=== PATIENT | female | born 1950 | race Caucasian/White ===

== ENCOUNTER 2019-05-01 18:49 | Inpatient (IN) | payer OTHER, MEDICAID ==
[~2019-05-01] VITALS: Ht 167.6 cm; Wt 63.0 kg
[2019-05-01 18:56] VITALS: BP_SYST 130
--- NOTE | 2019-05-01 19:01 | NUR ---
Patient to ER bed 8 to gown for evaluation. Side rails up.
[2019-05-01] MEDS ORDERED: NACL 0.9% 1,000 ML IV ONE ×2 (19:10→20:00)
--- NOTE | 2019-05-01 19:10 | NUR ---
ER at bedside examining patient.
--- NOTE | 2019-05-01 19:10 | NUR ---
Pt arrives from [facility] under the care of Dr. Freitas.
[2019-05-01] MEDS ORDERED: FAMOTIDINE PF 20 MG/2 ML VIAL IVP ONE (19:15)
[2019-05-01] MEDS ORDERED: ONDANSETRON HCL 4 MG/2 ML VIAL IVP ONE (19:15)
[2019-05-01] MEDS ORDERED: MORPHINE 4 MG/ML INJ. SYRINGE IVP ONE (19:15)
--- NOTE | 2019-05-01 19:20 | NUR ---
patient arrived from subacute with c/o bloody vomit x 3 days. patient states she has pain in her abd aswell that started today. patient states "pain gets better when i press on my stomach." patient is not actively vomiting at this time. patients oral cavity is pink and does not have any blood at this time. patient has normal active bowlsounds and denies dark or liquid stool. no other compalint at this time.
--- NOTE | 2019-05-01 20:00 | NUR ---
# 24 gauge angiocath placed to R hand. Use of asceptic technique. Opsite placed over site. Blood return noted. Blood for lab drawn from site. Flushed with 10 cc of normal saline. No evidence of infiltration noted. Patient tolerated well.
[2019-05-01 20:06] LABS: BASOPHILS % (AUTO) 0.8 % (0.0-2.0); EOSINOPHILS # (AUTO) 0.1 K/uL (0.0-0.4); EOSINOPHILS % (AUTO) 2.8 % (0.0-4.0); LYMPHOCYTES # (AUTO) 2.1 K/uL (1.0-5.5); LYMPHOCYTES % (AUTO) 44.3 % (20.5-51.5); MEAN CORPUSCULAR HEMOGLOBIN 28 pg (27-31); MEAN CORPUSCULAR HGB CONC 33 % (32-36); MEAN CORPUSCULAR VOLUME 85 fL (79.0-98.0); MONOCYTES # (AUTO) 0.4 K/uL (0.0-1.0); MONOCYTES % (AUTO) 7.3 % (1.7-9.3); NEUTROPHILS # (AUTO) 2.2 K/uL (1.8-7.7); NEUTROPHILS % (AUTO) 44.8 % (40.0-70.0); PLATELET COUNT (AUTO) 196 K/uL (130-430); RED BLOOD CELL COUNT(AUTO) 4.71 MIL/uL (4.2-6.2); RED CELL DISTRIBUTION WIDTH 15.1 % (9.0-15.0); WHITE BLOOD COUNT (AUTO) 4.8 K/uL (4.8-10.8)
[2019-05-01 20:34] LABS: CREATININE 0.58 mg/dL (0.55-1.30); POTASSIUM 3.2 mmol/L (3.5-5.1)
[2019-05-01 20:40] LABS: ALBUMIN 3.5 g/dL (3.4-4.8); TOTAL BILIRUBIN 0.3 mg/dL (0.0-1.0)
[2019-05-01 20:44] LABS: BILIRUBIN,URINE NEGATIVE (NEGATIVE); BLOOD, URINE NEGATIVE (NEGATIVE); CLARITY/URINE SL HAZY (CLEAR); COLOR,URINE YELLOW (YELLOW); GLUCOSE,URINE NEGATIVE (NEGATIVE); KETONES,URINE TRACE (NEGATIVE); LEUKOCYTE ESTERASE ,URINE TRACE (NEGATIVE); NITRITE, URINE NEGATIVE (NEGATIVE); PH,URINE 6.5 (5.0-8.0); PROTEIN URINE NEGATIVE (NEGATIVE); UROBILINOGEN,URINE 0.2 (0.2-1.0)
[2019-05-01 21:16] LABS: RBC,URINE 0-3 /HPF (0-3)
[2019-05-01 21:17] LABS: BACTERIA,URINE FEW /HPF (None Seen)
[2019-05-01 21:18] LABS: MUCUS,URINE 2+ /LPF (None Seen); URINE AMORPHOUS URATE 1+ /HPF (None Seen)
[2019-05-01] MEDS ORDERED: POTASSIUM CHLORIDE 20 MEQ TAB.PRT.SR PO ONE (21:30)
[2019-05-01] MEDS ORDERED: LEVOFLOXACIN 500 MG/D5W 100 ML IV ONE (21:30)
[2019-05-01] MEDS ORDERED: PREG200C PO (22:28)
[2019-05-01] MEDS ORDERED: ASCO500C18 (22:28)
[2019-05-01] MEDS ORDERED: QUET100T33 PO (22:28)
[2019-05-01] MEDS ORDERED: MAGN400C PO (22:28)
[2019-05-01] MEDS ORDERED: FOLI-43 PO (22:28)
[2019-05-01] MEDS ORDERED: DULO40CA PO (22:28)
[2019-05-01] MEDS ORDERED: IBUP-1505 (22:28)
[2019-05-01] MEDS ORDERED: CAT.1 PO (22:28)
[2019-05-01] MEDS ORDERED: ONDA4TAB11 PO (22:28)
[2019-05-01] MEDS ORDERED: [UNRECOGNIZED DRUG - CODE] (22:28)
[2019-05-01] MEDS ORDERED: ACET-2766 PO (22:28)
[2019-05-01] MEDS ORDERED: LEVO75CA2 PO (22:28)
[2019-05-01] MEDS ORDERED: HYDR50TA61 (22:28)
[2019-05-01] MEDS ORDERED: AMLO2.5T2 PO (22:28)
[2019-05-01] MEDS ORDERED: ZIN220 PO (22:28)
[2019-05-01] MEDS ORDERED: LACT1CAP61 PO (22:28)
[2019-05-01] MEDS ORDERED: ALBU8.5H8 (22:28)
[2019-05-01] MEDS ORDERED: MULT1CAP34 PO (22:28)
[2019-05-01] MEDS ORDERED: METH500T6 PO (22:28)
[2019-05-01] MEDS ORDERED: MORP-92 PO (22:28)
[2019-05-01] MEDS ORDERED: MORPHINE 4 MG/ML INJ. SYRINGE IVP PRN (22:30)
[2019-05-01] MEDS ORDERED: MORPHINE 2 MG/ML INJ. SYRINGE IVP PRN (22:30)
--- NOTE | 2019-05-01 22:40 | NUR ---
Medication reconciliation completed with information provided by SNF. Any prior medication reconciliation on file was reviewed and corrected.
--- NOTE | 2019-05-01 22:45 | NUR ---
Patient will be admitted to care of MD Muñoz. Admitted to Med/Surg unit. Will go to room 104-A. Belongings list completed. Summary report printed. Report will be given at bedside.
--- NOTE | 2019-05-01 23:19 | NUR ---
ADMIT NOTE Received pt from ER to the floor with a diagnosis of cholelithiasis. Admission process initiated. patient oriented to pain management, safety and call light-teach back done.
[2019-05-01 23:20] VITALS: BP_SYST 125
[2019-05-01] MEDS: MORPHINE 2 MG/ML INJ. SYRINGE IVP PRN (23:58)
--- NOTE | 2019-05-01 23:58 | NUR ---
PAIN/MORPHINE PT REPORTING SEVERE ABDOMINAL PAIN. MORPHINE 2 MG IVP ADMINISTERED. MEDICATION ACTION AND POTENTIAL SIDE EFFECTS EXPLAINED. PT VERBALIZED UNDERSTANDING. PT TOLERATED WELL. NO S/S OF ACUTE DISTRESS. SAFETY PRECAUTIONS ARE IN PLACE: BED IS LOCKED IN LOWEST POSITION, SIDE RAILS UP X2, CALL LIGHT IS WITH PT, BED ALARM IS ON, CLOSE TO NURSES STATION. WILL CONT TO MONITOR.
[2019-05-02] VITALS: BP_SYST 129
[2019-05-02] MEDS: D5/0.45 NS 1,000 ML IV SCH ×2 (00:16→11:12)
--- NOTE | 2019-05-02 01:25 | NUR ---
Consultation Paged Reason for Consultation: GI Was consult called: Y Person who was notified: Fauzia Consulting Physician: Dr. Riley (Dr. Leigh is convertible sofa bedspring tester) Medical Scribe Ordering Physician: Dr. Freitas
--- NOTE | 2019-05-02 01:40 | NUR ---
Consultation Paged Reason for Consultation: ID Was consult called: Y Person who was notified: Fauzia Consulting Physician: Arnaldo Ariza Purchasing Specialist Ordering Physician: Dr. Freitas Addendum: 05/02/19 at 3703 by Georgina Aguilar MT/ Face Sheet was faxed to [phone]
--- NOTE | 2019-05-02 02:15 | NUR ---
SLEEPING PT RESTING IN BED, NO S/S OF ACUTE DISTRESS, BREATHING IS EVEN AND UNLABORED TO ROOM AIR. SAFETY AND FALL PRECAUTIONS MAINTAINED. WILL MONITOR.
--- NOTE | 2019-05-02 04:02 | NUR ---
RESTING PT RESTING IN BED WITH EYES CLOSED. NO S/S OF DISTRESS. IVF INFUSING ORDERED. BREATHING IS UNLABORED TO ROOM AIR. SAFETY PRECAUTIONS MAINTAINED. WILL MONITOR.
--- NOTE | 2019-05-02 06:57 | NUR ---
Nutrition Update Babak Scale 16 noted. Pt admitted for Cholelithiasis Diet: no diet order BMI: 22.4 kg/m2 RD to follow per nutrition care standards.
--- NOTE | 2019-05-02 07:07 | NUR ---
CLOSING NOTE PT RESTING IN BED IN NO ACUTE DISTRESS. BREATHING IS EVEN AND EFFORTLESS TO ROOM AIR. NO SIGN OF PAIN AT THIS TIME. IVF INFUSING ORDERED. ACCORDING TO RADIOLOGY, HIDA SCAN WILL OCCUR AT APPROXIMATELY [phone] TODAY. PT HAS BEEN NPO. WILL ENDORSE FOR DAY SHIFT TO TAKE SKIN PICTURES. SAFETY MAINTAINED. WILL ENDORSE TO DAY SHIFT RN.
[2019-05-02 07:59] LABS: ALBUMIN 2.9 g/dL (3.4-4.8); CALCIUM 8.3 mg/dL (8.4-11.0); CREATININE 0.53 mg/dL (0.55-1.30); POTASSIUM 3.5 mmol/L (3.5-5.1); TOTAL BILIRUBIN 0.2 mg/dL (0.0-1.0)
--- NOTE | 2019-05-02 08:00 | NUR ---
ASSUMPTION OF CARE: RECEIVED PT A/A/OX4, ACUTE PAIN, R/T CHOLECYSTITIS, VSS, NO C/O PAIN AT THIS TIME, AFEBRILE, NO S/S OF DISTRESS, ABD PALPABLE, NON-DISTENDED, MADE NPO FOR POSSIBLE PROCEDURE, AWAITING NUCLEAR MED FOR SCHEDULED SMALL BOWEL SERIES, KEPT NPO, TOLERATING WELL, WILL CONT' TO MONITOR AND ASSESS.
[2019-05-02 08:07] VITALS: BP_SYST 139
[2019-05-02 12:00] VITALS: BP_SYST 147
--- NOTE | 2019-05-02 12:00 | NUR ---
NURSES NOTES: PT RESTING IN BED IN POSITION OF COMFORT, WHILE SLEEPING , EASILY AROUSED VIA VERBAL STIMULI, NO DISTRESS NOTED, CALL LIGHT WITHIN REACH, WILL CONT' TO MONITOR AND ASSESS.
--- NOTE | 2019-05-02 14:27 | NUR ---
Dietitian Recommendations * Recommend advancing diet when medically appropriate. Please see Nutritional Assessment for details. MARIVEL CAMILO
[2019-05-02 16:00] VITALS: BP_SYST 154
--- NOTE | 2019-05-02 16:00 | NUR ---
NURSES NOTES: PT REMAINS STABLE, NO S/S OF DISTRESS, NEEDS MET, CALL LIGHT PLACED WITHIN REACH, WILL CONT' TO MONITOR AND ASSESS.
[2019-05-02] MEDS ORDERED: MORPHINE 2 MG/ML INJ. SYRINGE IVP PRN ×2 (16:15)
[2019-05-02] MEDS: MORPHINE 2 MG/ML INJ. SYRINGE IVP PRN (16:33)
--- NOTE | 2019-05-02 18:00 | NUR ---
END OF SHIFT: PT REMAINS STABLE, NEEDS MET, WILL CONT' TO MONITOR, WILL ENDORSE TO DEMONSTRATOR SEWING TECHNIQUES NURSE.
[2019-05-02] MEDS: LORazepam 2 MG/ML VIAL IVP PRN (18:28)
[2019-05-03 00:25] VITALS: BP_SYST 148
[2019-05-03] MEDS: D5/0.45 NS 1,000 ML IV SCH ×2 (02:10→15:30)
--- NOTE | 2019-05-03 02:49 | NUR ---
Assumed pt care from Registry nurse Stinson.
--- NOTE | 2019-05-03 04:45 | NUR ---
Rounds Pt awake, no s/s distress noted. Pt refused IVF at this time. Educated pt on risks/benefit. Call light within reach. Bed low, locked, siderails up, alarm on. To monitor.
--- NOTE | 2019-05-03 07:00 | NUR ---
Closing notes Pt asleep, no s/s distress noted. IV saline lock R.hand 22 clear and patent. Call light/items within reach. Bed low, locked, siderails up, bed alarm on. To endorse to AM nurse.
[2019-05-03] MEDS: MORPHINE 2 MG/ML INJ. SYRINGE IVP PRN ×4 (07:45→20:42)
[2019-05-03 07:56] VITALS: BP_SYST 153
--- NOTE | 2019-05-03 08:00 | NUR ---
ASSUMPTION OF CARE: RECEIVED PT A/A/OX4, ACUTE PAIN, R/T CHOLECYSTITIS, VSS, NO C/O PAIN AT THIS TIME, AFEBRILE, NO S/S OF DISTRESS, TOLERATING WELL, ORIENTED TO UNIT, CALL LIGHT PLACED WITHIN REACH,WILL CONT' TO MONITOR AND ASSESS.
[2019-05-03] MEDS: LORazepam 2 MG/ML VIAL IVP PRN ×2 (08:35→14:59)
--- NOTE | 2019-05-03 09:00 | NUR ---
VISIT: AT BEDSIDE FOR ASSESSMENT OF PT, DISCUSSED POC, PT VERBALIZES UNDERSTANDING, NEW ORDERS GIVEN, WILL CONT' TO MONITOR AND ASSESS.
[2019-05-03 11:36] VITALS: BP_SYST 130
[2019-05-03] MEDS ORDERED: CIPROFLOXACIN HCL 500 MG TABLET PO ONE (12:00)
[2019-05-03 15:32] VITALS: BP_SYST 144
--- NOTE | 2019-05-03 16:00 | NUR ---
NURSES NOTES: PT OBSERVED WHILE RESTING IN BED, NO S/S OF DISTRESS, NO INDICATION OF PAIN, CALL LIGHT WITHIN REACH, WILL CONT' TO MONITOR AND ASSESS.
--- NOTE | 2019-05-03 18:00 | NUR ---
END OF SHIFT: PT REMAINS STABLE, NEEDS MET, WILL CONT' TO MONITOR, WILL ENDORSE TO MANAGER MEDICAL AFFAIRS NURSE.
[2019-05-03 20:20] VITALS: BP_SYST 112
--- NOTE | 2019-05-03 20:20 | NUR ---
Opening notes Pt asleep, easily arousable, VSS, afebrile. No s/s distress noted. IV saline lock R. hand 22G clear and patent. Pt refused IVF explained to pt POC and risk/benefits. Pt to be NPO after midnight. Call light/items within reach. Pt's cigarettes at station for safe keeping and pt aware of no smoking inside pts room. Will continue to monitor.
--- NOTE | 2019-05-03 20:42 | NUR ---
Pain med Pt c/o pain 02/12 lower back, medicated with Morphine 2mg IVP. Call light within reach. Safety measures in place. To monitor.
[2019-05-03] MEDS: CIPROFLOXACIN HCL 500 MG TABLET PO SCH (21:16)
--- NOTE | 2019-05-04 00:25 | NUR ---
Rounds Pt asleep, easily arousable. VSS. No s/s distress noted. Call light within reach. To monitor.
[2019-05-04 01:10] VITALS: BP_SYST 127
--- NOTE | 2019-05-04 01:55 | NUR ---
Rounds Pt asleep, no s/s distress noted. Pt repositions herself in bed. Call light within reach. Safety measures maintained. To monitor.
[2019-05-04] MEDS: D5/0.45 NS 1,000 ML IV SCH (04:50)
[2019-05-04] MEDS: MORPHINE 2 MG/ML INJ. SYRINGE IVP PRN (05:41)
--- NOTE | 2019-05-04 06:05 | NUR ---
IV restart IV leaking on R. hand. Dc'd IV catheter tip intact. Restarted new IV left wrist 22G aseptic technique x 1 attempt, good blood return. Pt tolerated well. Ativan 1mg IVP given as needed. To monitor.
[2019-05-04] MEDS: LORazepam 2 MG/ML VIAL IVP PRN ×2 (06:09→13:54)
--- NOTE | 2019-05-04 07:00 | NUR ---
Off the unit Pt off to GI for procedure via wheelchair. Pt in stable condition.
[2019-05-04] MEDS: fentaNYL CITRATE/PF 100 MCG/2 ML AMP ONE ×4 (07:21→09:09)
[2019-05-04] MEDS: MIDAZOLAM HCL 5 MG/5 ML VIAL ONE ×5 (07:21→09:11)
[2019-05-04] MEDS ORDERED: BENZOCAINE 20% 0.5mL UD SPRAY MM ONE (07:22)
[2019-05-04] MEDS ORDERED: SIMETHICONE 40 MG/0.6 ML ML ONE (07:25)
[2019-05-04 10:00] VITALS: BP_SYST 153
[2019-05-04] MEDS ORDERED: MIDAZOLAM HCL 5 MG/ML VIAL (VERSED) IV ONE (10:00)
[2019-05-04] MEDS ORDERED: fentaNYL CITRATE/PF 100 MCG/2 ML AMP IVP ONE (10:00)
[2019-05-04] MEDS ORDERED: DIPHENHYDRAMINE INJ 50 MG/ML VIAL IV ONE (10:00)
--- NOTE | 2019-05-04 10:00 | NUR ---
ON UNIT PATIENT RETURNED FROM ENTEROSCOPY. REPORT RECEIVED FROM CELIA; NO FINDINGS WITH 3 BIOPSY TAKEN. PATIENT AWAKE. ALERT AND ORIENTED. PATIENT ABLE TO TRANSFER FROM [facility] TO BED WITH 2 PERSON ASSIST. DENIES PAIN. ROOM AIR. NO ACUTE DISTRESS. NO SOB. RESPIRATION EVEN AND UNLABORED. SKIN WARM AND DRY TO TOUCH. IV INTACT AND PATENT. RIGHT BKA NOTED. BED IN LOW AND LOCKED POSITION. SIDERAIL UP X3. CALL LIGHT IN REACH. CONT TO MONITOR. ROOM NEAR NURSES STATION.
[2019-05-04] MEDS: CIPROFLOXACIN HCL 500 MG TABLET PO SCH (10:30)
[2019-05-04 12:32] VITALS: BP_SYST 142
--- NOTE | 2019-05-04 12:45 | NUR ---
NOTE PATIENT HAD A SMALL BM. INCONTINENCE CARE PROVIDED, GIOVANA WELL. ALL NEEDS MET. CONT TO MONITOR.
--- NOTE | 2019-05-04 14:41 | NUR ---
SPOKE TO AND INFORMED MD EGD FINDING WAS ESOPHAGITIS. RECEIVED ORDER TO D/C BACK TO SNF
--- NOTE | 2019-05-04 16:00 | NUR ---
NOTE ASSISTED PATIENT TO COMMODE, GIOVANA WELL. ALL NEEDS MET. CONT TO MONITOR
[2019-05-04 16:10] VITALS: BP_SYST 142
[2019-05-04 16:17] VITALS: BP_SYST 142
--- NOTE | 2019-05-04 17:35 | NUR ---
PT TRANSFERRED Report given to Uyen ESTRADA at [facility]. Transfer packet with Transfer Orders and Medication Reconciliation form given to EMT with report. Exitcare provided. [facility] ID band removed, replaced with ID band with pt's name and . IV catheter removed, intact and dressing applied, no active bleeding. All belongings sent with patient. Patient left floor via gurney escorted by EMT in no distress.
[2019-05-06] MEDS ORDERED: ceFAZolin SODIUM 1 GM VIAL ONE (20:07)
== END 2019-05-04 17:38 | DRG 445 ==
LOC: SED 18:49 → SMU 22:38
PROVIDERS: ADMIT Internal Medicine; ATTEND Internal Medicine
PROC: 0DB68ZX Excision of Stomach, Via Natural or Artificial Opening Endoscopic, Diagnostic (ICD-10-PCS; 2019-05-04)
PROC: 0DB58ZX Excision of Esophagus, Via Natural or Artificial Opening Endoscopic, Diagnostic (ICD-10-PCS; 2019-05-04)
PROC: 0DC38ZZ Extirpation of Matter from Lower Esophagus, Via Natural or Artificial Opening Endoscopic (ICD-10-PCS; 2019-05-04)
PROC: 0DBA8ZX Excision of Jejunum, Via Natural or Artificial Opening Endoscopic, Diagnostic (ICD-10-PCS; principal; 2019-05-04 07:30)
DX: K80.20 Calculus of gallbladder without cholecystitis without obstruction (principal); N39.0 Urinary tract infection, site not specified; E78.5 Hyperlipidemia, unspecified; F17.210 Nicotine dependence, cigarettes, uncomplicated; G89.4 Chronic pain syndrome; I10 Essential (primary) hypertension; I25.10 Atherosclerotic heart disease of native coronary artery without angina pectoris; E87.6 Hypokalemia; M79.7 Fibromyalgia; K20.9 Esophagitis, unspecified; M81.0 Age-related osteoporosis without current pathological fracture; Z86.14 Personal history of Methicillin resistant Staphylococcus aureus infection; Z89.511 Acquired absence of right leg below knee; Z90.710 Acquired absence of both cervix and uterus; Z79.899 Other long term (current) drug therapy; Z88.5 Allergy status to narcotic agent; Z88.8 Allergy status to other drugs, medicaments and biological substances; Z98.84 Bariatric surgery status; K44.9 Diaphragmatic hernia without obstruction or gangrene
CPT/HCPCS: 36415; 43239; 74250-TC; 78226; 80053; 81000-TC; 83605; 83690-TC; 85025; 87040-TC; 87081; 87086; 88305; 88312; 88313; 96361; 96374; 96375; 99285; A9537; J0690; J1200; J1956; J2060; J2250; J2270; J2405; J3010; J3490

== ENCOUNTER 2019-05-06 13:15 | Inpatient (IN) | payer OTHER, MEDICAID ==
[~2019-05-06] VITALS: Ht 170.2 cm; Wt 70.3 kg
[~2019-05-06 13:15] MED LIST: ACET-2766 PO; ALBU8.5H8; AMLO2.5T2 PO; ASCO500C18; CAT.1 PO; DULO40CA PO; FOLI-43 PO; HYDR50TA61; IBUP-1505; LACT1CAP61 PO; LEVO75CA2 PO; MAGN400C PO; METH500T6 PO; MORP-92 PO; MULT1CAP34 PO; ONDA4TAB11 PO; PREG200C PO; QUET100T33 PO; ZIN220 PO; [UNRECOGNIZED DRUG - CODE]
[2019-05-06 13:16] VITALS: BP_SYST 111
--- NOTE | 2019-05-06 13:55 | NUR ---
Patient to ER bed to gown for evaluation. Side rails up.
--- NOTE | 2019-05-06 14:00 | NUR ---
pt bib via BLS from a SNF. pt feel onto her right stump while transferring to a . Pt has had 10/10 right stump pain since. Will continue to monitor.
--- NOTE | 2019-05-06 14:18 | NUR ---
ER at bedside examining patient.
--- NOTE | 2019-05-06 14:30 | NUR ---
# 20 gauge angiocath placed to RAC. Use of asceptic technique. Opsite placed over site. Blood return noted. Blood for lab drawn from site. Flushed with 10 cc of normal saline. No evidence of infiltration noted. Patient tolerated well.
[2019-05-06 15:10] LABS: BASOPHILS % (AUTO) 0.4 % (0.0-2.0); EOSINOPHILS # (AUTO) 0.1 K/uL (0.0-0.4); EOSINOPHILS % (AUTO) 1.2 % (0.0-4.0); HEMATOCRIT 37.2 % (36-48); HEMOGLOBIN 12.3 g/dL (12.0-16.0); LYMPHOCYTES # (AUTO) 1.8 K/uL (1.0-5.5); LYMPHOCYTES % (AUTO) 27.7 % (20.5-51.5); MEAN CORPUSCULAR HEMOGLOBIN 28 pg (27-31); MEAN CORPUSCULAR HGB CONC 33 % (32-36); MEAN CORPUSCULAR VOLUME 84 fL (79.0-98.0); MONOCYTES # (AUTO) 0.6 K/uL (0.0-1.0); MONOCYTES % (AUTO) 8.6 % (1.7-9.3); NEUTROPHILS # (AUTO) 4.1 K/uL (1.8-7.7); NEUTROPHILS % (AUTO) 62.1 % (40.0-70.0); PLATELET COUNT (AUTO) 201 K/uL (130-430); RED BLOOD CELL COUNT(AUTO) 4.41 MIL/uL (4.2-6.2); RED CELL DISTRIBUTION WIDTH 15.3 % (9.0-15.0); WHITE BLOOD COUNT (AUTO) 6.6 K/uL (4.8-10.8)
[2019-05-06 15:15] LABS: CALCIUM 9.1 mg/dL (8.4-11.0); CREATININE 0.68 mg/dL (0.55-1.30); POTASSIUM 3.2 mmol/L (3.5-5.1)
[2019-05-06] MEDS ORDERED: fentaNYL CITRATE/PF 100 MCG/2 ML AMP IVP ONE (15:15)
[2019-05-06 15:21] LABS: ALBUMIN 3.3 g/dL (3.4-4.8); PROTHROMBIN TIME 10.2 SECS (9.5-12.5); TOTAL BILIRUBIN 0.5 mg/dL (0.0-1.0)
--- NOTE | 2019-05-06 15:50 | NUR ---
Fentanyl given per MD order. Will reassess
[2019-05-06] MEDS ORDERED: POTASSIUM CHLORIDE 20 MEQ TAB.PRT.SR PO ONE (16:15)
[2019-05-06] MEDS ORDERED: NACL 0.9% 1,000 ML IV ONE (16:15)
--- NOTE | 2019-05-06 16:20 | NUR ---
pt reports feeling better
[2019-05-06] MEDS ORDERED: MORPHINE 2 MG/ML INJ. SYRINGE IVP PRN (16:30)
[2019-05-06] MEDS ORDERED: ONDANSETRON HCL 4 MG/2 ML VIAL IVP PRN (16:30)
[2019-05-06] MEDS ORDERED: ASA81 PO (16:56)
[2019-05-06] MEDS ORDERED: SERT25TA PO (16:56)
[2019-05-06] MEDS ORDERED: METH750T3 GT (16:56)
[2019-05-06] MEDS ORDERED: DULO20CA PO (16:56)
[2019-05-06] MEDS ORDERED: TRAZ-250 PO (16:56)
[2019-05-06] MEDS ORDERED: SER25 PO (16:56)
[2019-05-06] MEDS ORDERED: ASCO500T20 PO (16:56)
--- NOTE | 2019-05-06 17:00 | NUR ---
pt will be admitted under the care of Dr. Freitas. Orders received.
[2019-05-06] MEDS ORDERED: ACET-2165 PO (17:04)
[2019-05-06] MEDS ORDERED: ACET-2634 PO (17:04)
--- NOTE | 2019-05-06 17:30 | NUR ---
Patient will be admitted to care of Dr. Freitas. Admitted to tele unit. Will go to room 103-b. Belongings list completed. Summary report printed. Report will be given at bedside.
--- NOTE | 2019-05-06 17:32 | NUR ---
ADMISSION: The patient, JERSON OLSEN, 68 y/o, F admitted by COMFORT NOLEN MD, was given written information regarding hospital policies, unit procedures and contact persons. Valuables were checked and logged in. Patient is awake. A/Ox4. C/O 9/10 pain to right leg r/t femur fracture. Room air. No acute distress. No SOB. Respiration even and unlabored. Skin warm and dry to touch. IV intact and patent aurora IVF. 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 Oriented patient to room, bed and call light. Discussed plan of care; pt verbalized understanding. Bed in low and locked position. Siderail upx3. Bed alarm on. All needs met. Call light in reach. Cont to monitor
--- NOTE | 2019-05-06 17:33 | NUR ---
CONSULTATION PAGED REASON FOR CONSULTATION:FEMUR FRACRTURE WAS CONSULT CALLED?Y PERSON WHO WAS NOTIFIED:EVA CONSULTING PHYSICIAN:CORY FUENTES [employer] SPECIALTY:ID [employer] PHONE NUMBER:[phone] REQUESTING PHYSICIAN:COMFORT MAS
--- NOTE | 2019-05-06 17:45 | NUR ---
SPOKE TO ; WILL SEE PATIENT TOMORROW
[2019-05-06] MEDS: MORPHINE 2 MG/ML INJ. SYRINGE IVP PRN (17:53)
[2019-05-06] MEDS: D5/0.45 NS 1,000 ML IV SCH (18:24)
--- NOTE | 2019-05-06 19:00 | NUR ---
CLOSING NOTE PATIENT ATE DINNER WELL. NO ACUTE DISTRESS. NO SOB. RESPIRATION EVEN AND UNLABORED. SKIN WARM AND DRY TO TOUCH. IV INTACT AND PATENT; GIOVANA IVF. BED IN LOW AND LOCKED POSITION. SIDERAIL UPX3. BED ALARM ON. CALL LIGHT IN REACH. CONT TO MONITOR
--- NOTE | 2019-05-06 19:15 | NUR ---
OPENING NOTES Patient is awake, alert oriented x4. No signs of respiratory distress and discomfort noted. Breathing even and unlabored. IVF infusing well, patency noted. No signs of infiltration, no signs of infection noted. Patient asked to go out and smoke. Patient educated on smoking cessation and the risk of transfer due to S/P fall. Patient verbalized understanding and stayed in bed. Bed in locked and lowest position. Call light within reach, educated on the proper use of call light, to call when need for assistance. Patient verbalized and demonstrated the proper use of call light. Will continue to monitor
[2019-05-06 19:51] VITALS: BP_SYST 135
[2019-05-06 20:00] VITALS: BP_SYST 135
--- NOTE | 2019-05-06 21:00 | NUR ---
RN ROUNDS Patient asleep at this time, NO SOB and signs of discomfort at this time. Breathing even and unlabored. IV fluids infusing well, patency noted. Safety precautions in place. Bed alarm on. Will continue to monitor.
[2019-05-06] MEDS: ceFAZolin SODIUM 1 GM in D5W 50 ML IV SCH (21:20)
[2019-05-06] MEDS: LORazepam 2 MG/ML VIAL IVP PRN (21:48)
[2019-05-07] MEDS: MORPHINE 2 MG/ML INJ. SYRINGE IVP PRN ×5 (00:08→21:10)
--- NOTE | 2019-05-07 00:08 | NUR ---
PAIN Patient verbalized 10/10 right leg pain. PRN pain medication given. No SOB noted. Reposition for comfort. Safety precautions in place. Will re assess and continue to monitor.
--- NOTE | 2019-05-07 02:00 | NUR ---
RN ROUNDS Patient asleep at this time, NO SOB and signs of discomfort at this time. Breathing even and unlabored. IVF infusing well, patency noted. Safety precautions in place. Bed alarm on. Will continue to monitor.
--- NOTE | 2019-05-07 04:15 | NUR ---
RN ROUNDS Patient asleep. NO SOB and signs of discomfort at this time. Breathing even and unlabored. Safety precautions in place. Bed alarm on. Will continue to monitor.
[2019-05-07 05:02] VITALS: BP_SYST 142
--- NOTE | 2019-05-07 05:22 | NUR ---
CONSULTATION PAGED/CALLED Reason for Consultation: FEMUR FX Person Who was Notified: LEE Consulting Physician: DR. BUSBY; ADMISSIONS OFFICER- DR. LOPEZ Hybrid Car Mechanic Specialty: ORTHO Ordering Physician: DR. NOLEN
[2019-05-07] MEDS: D5/0.45 NS 1,000 ML IV SCH ×2 (06:28→20:56)
--- NOTE | 2019-05-07 06:41 | NUR ---
CLOSING NOTES/NEW IV HUNG Patient asleep at this time, no signs of respiratory distress and discomfort noted. IVF infusing well, patency noted. No signs of infiltration and signs of infection noted. Patient incontinent, and verbalized ''I brought my own diaper''. Patient educated on the risk of skin breakdown of using diaper, and the purpose of using chucks. Patient verbalize understanding but still wanted to use her own diaper. All needs met throughout the shift. Bed locked and lowest position. Bed alarm on. Call light within reach. Will continue to monitor until endorsed to oncoming nurse.
--- NOTE | 2019-05-07 06:55 | NUR ---
Nutrition Update Babak Scale 15 noted. Pt admitted for Femur Fracture Diet: Cardiac BMI: 24.3 kg/m2 RD to follow per nutrition care standards.
[2019-05-07 07:12] LABS: BASOPHILS % (AUTO) 0.2 % (0.0-2.0); EOSINOPHILS # (AUTO) 0.1 K/uL (0.0-0.4); EOSINOPHILS % (AUTO) 1.5 % (0.0-4.0); HEMATOCRIT 31.2 % (36-48); HEMOGLOBIN 10.5 g/dL (12.0-16.0); LYMPHOCYTES # (AUTO) 1.7 K/uL (1.0-5.5); LYMPHOCYTES % (AUTO) 30.6 % (20.5-51.5); MEAN CORPUSCULAR HEMOGLOBIN 28 pg (27-31); MEAN CORPUSCULAR HGB CONC 34 % (32-36); MEAN CORPUSCULAR VOLUME 84 fL (79.0-98.0); MONOCYTES # (AUTO) 0.6 K/uL (0.0-1.0); MONOCYTES % (AUTO) 10.1 % (1.7-9.3); NEUTROPHILS # (AUTO) 3.2 K/uL (1.8-7.7); NEUTROPHILS % (AUTO) 57.6 % (40.0-70.0); PLATELET COUNT (AUTO) 161 K/uL (130-430); RED BLOOD CELL COUNT(AUTO) 3.71 MIL/uL (4.2-6.2); WHITE BLOOD COUNT (AUTO) 5.5 K/uL (4.8-10.8)
[2019-05-07 07:18] LABS: ALBUMIN 2.7 g/dL (3.4-4.8); CALCIUM 7.9 mg/dL (8.4-11.0); CREATININE 0.43 mg/dL (0.55-1.30); TOTAL BILIRUBIN 0.3 mg/dL (0.0-1.0)
[2019-05-07 07:26] LABS: INR 1.1 (0.8-1.2); PROTHROMBIN TIME 10.8 SECS (9.5-12.5)
--- NOTE | 2019-05-07 07:40 | NUR ---
Initial notes- in bed, awake, has incontinent of urine. Changed and repositioned. Pr had pain upon moving. will medicate. Denies any shortness of breath or chest pain. safety precaution and fall precaution observed. call light within reach. will monitor.
[2019-05-07 07:42] LABS: POTASSIUM 2.9 mmol/L (3.5-5.1)
[2019-05-07 08:00] VITALS: BP_SYST 146
--- NOTE | 2019-05-07 08:40 | NUR ---
MD GUZMAN PAGED AT [phone] SPOKE WITH MARY ELLEN.
[2019-05-07] MEDS: NICOTINE 14 MG/24 HR PATCH.TD24 TD SCH (09:00)
--- NOTE | 2019-05-07 09:26 | NUR ---
2ND PAGE OUT TO MD THOMAS MAS AT [phone] SPOKE WITH MARY ELLEN.
[2019-05-07] MEDS: ceFAZolin SODIUM 1 GM in D5W 50 ML IV SCH ×2 (09:38→20:57)
[2019-05-07] MEDS ORDERED: POTASSIUM CHLORIDE 20 MEQ/PKT PACKET PO ONE (10:15)
--- NOTE | 2019-05-07 10:55 | NUR ---
Pt refused breakfast, pt takes her potassium medication. Complain of pain upon moving. No acute distress noted. will monitor.
[2019-05-07 11:02] VITALS: BP_SYST 146
[2019-05-07] MEDS: LORazepam 2 MG/ML VIAL IVP PRN (11:08)
--- NOTE | 2019-05-07 11:31 | NUR ---
MD ROUNDS-See by Dr. Sol at bedside. MD okayed to have pt Orta catheter. Per MD no surgery needed. Pt needs maybe brace.
[2019-05-07 12:43] LABS: BILIRUBIN,URINE NEGATIVE (NEGATIVE); BLOOD, URINE NEGATIVE (NEGATIVE); CLARITY/URINE CLEAR (CLEAR); COLOR,URINE YELLOW (YELLOW); GLUCOSE,URINE NEGATIVE (NEGATIVE); KETONES,URINE NEGATIVE (NEGATIVE); LEUKOCYTE ESTERASE ,URINE NEGATIVE (NEGATIVE); NITRITE, URINE NEGATIVE (NEGATIVE); PROTEIN URINE NEGATIVE (NEGATIVE); UROBILINOGEN,URINE 0.2 (0.2-1.0)
[2019-05-07 13:30] LABS: CALCIUM 8.4 mg/dL (8.4-11.0); CREATININE 0.51 mg/dL (0.55-1.30); POTASSIUM 3.8 mmol/L (3.5-5.1)
--- NOTE | 2019-05-07 13:47 | NUR ---
Pt is resting at this time. No acute distress noted.
--- NOTE | 2019-05-07 15:00 | NUR ---
Guadalupe called [facility] and they are not open till thursday.
--- NOTE | 2019-05-07 15:43 | NUR ---
Resting does not want to be bothered at this time.
[2019-05-07 16:49] VITALS: BP_SYST 154
--- NOTE | 2019-05-07 18:21 | NUR ---
closing notes- In bed, resting. Pain is controlled t this time. Denies any chest pain or shortness of breath. All needs meet. will endorse
--- NOTE | 2019-05-07 19:30 | NUR ---
OPENING NOTES Patient is awake, alert oriented x4. No signs of respiratory distress. Breathing even and unlabored. IVF infusing well, patency noted, no signs of infection and no infiltration noted. Orta attached, secured and draining by gravity. Denies pain and discomfort at this time. Repositioned for comfort. Bed in locked and lowest position. Call light within reach, educated on the proper use of call light, to call when need for assistance. Patient verbalized and demonstrated the proper use of call light. Will continue to monitor
[2019-05-07 20:00] VITALS: BP_SYST 141
--- NOTE | 2019-05-07 21:10 | NUR ---
PAIN Patient verbalized 10/10 lower back pain. PRN pain medication given. Will re assess and continue to monitor patient.
--- NOTE | 2019-05-08 00:15 | NUR ---
RN ROUNDS Patient asleep at this time. No signs of respiratory distress and discomfort noted. Breathing even and unlabored. IVF infusing well. Safety precautions in place. Will continue to monitor.
--- NOTE | 2019-05-08 01:37 | NUR ---
RN ROUNDS Patient asleep. No signs of respiratory distress and discomfort noted. Breathing even and unlabored. IVF infusing well. Safety precautions in place. Will continue to monitor.
[2019-05-08 01:46] VITALS: BP_SYST 138
[2019-05-08] MEDS: MORPHINE 2 MG/ML INJ. SYRINGE IVP PRN ×5 (03:52→19:35)
--- NOTE | 2019-05-08 03:52 | NUR ---
PAIN Patient verbalized 10/10 lower back and leg pain. PRN pain medication given. Patient tolerated well. Will continue to re assess and monitor patient.
--- NOTE | 2019-05-08 05:00 | NUR ---
RN ROUNDS Patient asleep. No signs of respiratory distress and discomfort noted at this time. IVF infusing well. Safety precautions in place. Will continue to monitor.
--- NOTE | 2019-05-08 06:54 | NUR ---
CLOSING NOTES Patient awake, no respiratory distress noted. IVF infusing well. Orta attached and secured, draining well. All needs are met throughout the shift. Bed locked and lowest position. Safety precautions in place. Call light within in reach. Will continue to monitor until endorsed to oncoming nurse.
--- NOTE | 2019-05-08 07:15 | NUR ---
Psychosocial/neurovascular Patient is feeling anxious as verbalized,wants to take rest vitals sign stable , right leg stump with pain on movement trace of edema with good peripheral sensation able to move , warm to touch ,positioned according to patient comfort , explained to patient plan of care, pain management, waiting for hinge immobilizer to be available and verbalized understanding, will follow up.
[2019-05-08 07:18] VITALS: BP_SYST 141
[2019-05-08] MEDS: LORazepam 2 MG/ML VIAL IVP PRN ×2 (07:18→15:59)
[2019-05-08] MEDS: ceFAZolin SODIUM 1 GM in D5W 50 ML IV SCH ×2 (08:23→21:13)
[2019-05-08] MEDS: D5/0.45 NS 1,000 ML IV SCH ×2 (08:24→21:14)
[2019-05-08] MEDS: NICOTINE 14 MG/24 HR PATCH.TD24 TD SCH (08:24)
--- NOTE | 2019-05-08 08:30 | NUR ---
Patient repositioned by staff every 2 hours with pillow support. Premedicate patient prior to repositioning to right side right stump kept supported by pillow tolerates well , needs attended,safety fall precaution initiated.
[2019-05-08 11:28] VITALS: BP_SYST 134
[2019-05-08] MEDS ORDERED: VIS50 PO (12:02)
[2019-05-08] MEDS ORDERED: PREG75CA PO (12:02)
[2019-05-08] MEDS ORDERED: FOLI-43 PO (12:02)
[2019-05-08] MEDS ORDERED: MORP20CA19 PO (12:02)
[2019-05-08] MEDS ORDERED: MULTIVITAMIN PO (12:02)
[2019-05-08] MEDS ORDERED: ALBMDI INH (12:02)
[2019-05-08] MEDS ORDERED: CAT.1 PO (12:02)
[2019-05-08] MEDS ORDERED: NICO-680 TD (12:02)
[2019-05-08] MEDS ORDERED: MAGN400T10 PO (12:02)
[2019-05-08] MEDS ORDERED: LACT1POW8 PO (12:02)
[2019-05-08] MEDS ORDERED: MORPHINE 2 MG/ML INJ. SYRINGE IVP PRN (12:15)
--- NOTE | 2019-05-08 13:00 | NUR ---
Patient has a very poor appetite , offered food of choices but said im ok , drinking water and coffee ,small amount of food, on iv Fluid for hydration , will monitor.
[2019-05-08 15:01] VITALS: BP_SYST 138
--- NOTE | 2019-05-08 15:21 | NUR ---
Patient complaining of right hip pain and back premedicate then repositioned to right side supported by pillow will monitor , fall/safety precaution initiated
--- NOTE | 2019-05-08 15:26 | NUR ---
Discharge Planning: DCP faxed pt order for hinged knee brace to [facility] (f [phone] p [phone]).
--- NOTE | 2019-05-08 15:50 | NUR ---
Patient right femoral pain is much better but feeling anxious , due Ativan IV push slowly given , will monitor.
--- NOTE | 2019-05-08 16:27 | NUR ---
Rounds Patient sleeping but arousable no sign of acute discomfort, right thigh supported by pillow , will monitor.
[2019-05-08] MEDS ORDERED: cloNIDine HCL 0.1 MG TABLET PO PRN (17:00)
[2019-05-08] MEDS: METHOCARBAMOL 500 MG TABLET PO SCH ×2 (17:00→18:48)
[2019-05-08] MEDS ORDERED: ALBUTEROL SULFATE 0.083% 2.5 MG/3 ML VIAL.NEB INH PRN (17:15)
[2019-05-08 17:20] VITALS: BP_SYST 138
--- NOTE | 2019-05-08 17:30 | NUR ---
Patient sleeping but arousable no sign of acute discomfort , due Robaxin not given for safety of the patient.
--- NOTE | 2019-05-08 19:35 | NUR ---
OPENING NOTES/PAIN Received report. from AM nurse. Patient awake, alert, orientedx4. Patient verbalized 10/10 lower back and right leg pain. PRN pain medication given. IVF infusing well, patency noted. Orta attached and secured, draining by gravity. Bed locked and lowest position. Call light within reach. Encouraged patient to use call light and when assistance needed. Patient verbalized understanding and demonstrated the proper use of call light. Bed alarm on. Will continue to monitor.
[2019-05-08 20:00] VITALS: BP_SYST 141
[2019-05-08] MEDS ORDERED: traZODone HCL 50 MG TABLET (DESYREL) PO SCH (21:00)
[2019-05-08] MEDS ORDERED: QUEtiapine FUMARATE 100 MG TABLET PO SCH (21:00)
[2019-05-08] MEDS: ASCORBIC ACID 500 MG TABLET PO SCH (21:12)
[2019-05-08] MEDS: PREGABALIN 25 MG CAPSULE (LYRICA) PO SCH (21:13)
--- NOTE | 2019-05-08 21:13 | NUR ---
MED PASS/REFUSED SCD's Due medication given. Patient tolerated well. Patient educated on the purpose and benefits of SCD's. Patient verbalized understanding of its purpose but still refused to use it. Safety precautions kept in place. IVF infusing well. Orta in place and draining by gravity. Needs met and attended. Will continue to monitor.
[2019-05-08] MEDS ORDERED: ACETAMINOPHEN 500 MG TABLET PO PRN (22:00)
[2019-05-08] MEDS ORDERED: ACETAMINOPHEN 500 MG TABLET PO SCH (22:00)
[2019-05-09 00:04] VITALS: BP_SYST 107
--- NOTE | 2019-05-09 04:00 | NUR ---
RN ROUNDS Patient asleep. Repositioned for comfort. No signs of respiratory distress and discomfort noted. Breathing even and unlabored. IVF infusing well. Safety precautions in place. Will continue to monitor.
[2019-05-09] MEDS: MORPHINE 2 MG/ML INJ. SYRINGE IVP PRN ×5 (04:39→18:29)
--- NOTE | 2019-05-09 04:40 | NUR ---
PAIN Patient verbalized 10/10 lower back pain and right leg pain. PRN Morphine 2mg IVP given. Patient tolerated well. Will re assess and continue to monitor patient.
[2019-05-09] MEDS: PREGABALIN 25 MG CAPSULE (LYRICA) PO SCH ×2 (06:12→13:22)
[2019-05-09] MEDS: LORazepam 2 MG/ML VIAL IVP PRN ×2 (06:25→16:51)
--- NOTE | 2019-05-09 06:43 | NUR ---
CLOSING NOTE Patient asleep, arousable by name, alert oriented x4. No signs of respiratory distress and discomfort noted. Orta attached and draining well. Refused to reposition at this time. Educated on purpose and benefits, still refused. IVF infusing well, patency noted. Safety precautions in place. Call light within reach. All needs met throughout the shift. Will continue to monitor until endorse to oncoming nurse.
[2019-05-09] MEDS ORDERED: LEVOTHYROXINE SODIUM 0.075 MG TABLET PO SCH (07:00)
--- NOTE | 2019-05-09 07:55 | NUR ---
INITIAL NOTE RECEIVED PT IN BED, NO S/S OF DISTRESS OR SOB NOTED, PT HAS NO C/O PAIN AT THIS TIME, PT IN STABLE CONDITION, PT AAOX4, VERBAL, IV CATHETER PATENT, NO SIGNS OF INFECTION OR INFILTRATION NOTED, RUNNING IV FLUIDS ORDERED. BED AT LOWEST POSITION, CALL LIGHT WITHIN REACH, WILL CONTINUE TO MONITOR PT FOR ANY CHANGES, FALL AND SAFETY PRECAUTIONS IN PLACE. PT REFUSED SCD ON LEFT LEG, EDUCATED PT ON USE TO PREVENT DVT, PT VERBALIZED UNDERSTANDING BUT CONTINUES TO REFUSE. F/C DRAINING VIA GRAVITY. RIGHT STUMP ELEVATED WITH PILLOWS, NOTED EDEMA.
[2019-05-09 08:20] VITALS: BP_SYST 107
[2019-05-09] MEDS: NICOTINE 14 MG/24 HR PATCH.TD24 TD SCH (08:46)
[2019-05-09] MEDS: METHOCARBAMOL 500 MG TABLET PO SCH ×3 (08:56→16:56)
[2019-05-09] MEDS: ceFAZolin SODIUM 1 GM in D5W 50 ML IV SCH (08:56)
[2019-05-09] MEDS: ASCORBIC ACID 500 MG TABLET PO SCH (08:57)
[2019-05-09] MEDS ORDERED: FOLIC ACID 1 MG TABLET PO SCH (09:00)
[2019-05-09] MEDS ORDERED: ASPIRIN 81 MG TAB.CHEW PO SCH (09:00)
[2019-05-09] MEDS ORDERED: DULoxetine HCL 20 MG CAPSULE.DR PO SCH (09:00)
[2019-05-09] MEDS ORDERED: amLODIPine BESYLATE 5 MG TABLET PO SCH (09:00)
[2019-05-09] MEDS ORDERED: MULTIVITAMINS TAB 1 TABLET PO SCH (09:00)
[2019-05-09] MEDS ORDERED: MAGNESIUM OXIDE 400 MG TABLET PO SCH (09:00)
--- NOTE | 2019-05-09 10:41 | NUR ---
DC Planning: Per Dr. Freitas via phone: dcp back to snf once pt has brace fitting, PT eval and gait training,
--- NOTE | 2019-05-09 10:51 | NUR ---
Discharge Planning: BAG PRESS OPERATOR to follow up on pt. brace from [facility] BAG PRESS OPERATOR called and spoke to Etelvina ,from the [place] office where the pts. packet had been fax'd to on 05/08 by D/P Dario. Etelvina notified BAG PRESS OPERATOR that the packet was sent to the [place] office, ph. [phone]. BAG PRESS OPERATOR is to call and speak to Kait. BAG PRESS OPERATOR called and spoke to Kait at [facility], who confirmed they received the fax requesting the knee brace. She will have someone come out to fit pt. with brace and will also let BAG PRESS OPERATOR know when [facility] will be out today to [facility]. BAG PRESS OPERATOR will remain available as needed.
--- NOTE | 2019-05-09 10:55 | NUR ---
ROUNDS PT IN BED, NO S/S OF DISTRESS OR SOB NOTED, PT HAS NO C/O PAIN AT THIS TIME, PT IN STABLE CONDITION, PT TALKING ON THE PHONE, WILL CONTINUE TO MONITOR PT FOR ANY CHANGES.
[2019-05-09 11:20] VITALS: BP_SYST 128
--- NOTE | 2019-05-09 11:29 | NUR ---
Physical Therapy order has been received. Awaiting brace fitting.
[2019-05-09] MEDS: D5/0.45 NS 1,000 ML IV SCH (11:34)
--- NOTE | 2019-05-09 12:34 | NUR ---
Nutrition Assessment (short note d/t lack of time) PMH: Distal Femur Fracture w/ skin tenting, Distal R proximal Fibular Fracture, Hyperlipidemia, Hypothyroidism, Schizophrenia, Depression, Fibromyalgia, HTN, DC, Obstruction bile duct, Osteopenia per MD notes. A-RD reviewed pt's current EMR including diet Hx, physician notes, nursing notes, pertinent labs/meds/procedures, care trends and care activity. Nutrition Consult received for poor appetite. Pt reported of being depressed and w/ very poor appetite. Pt is edentulous, and reported that she lost her full dentures at [facility] in the past and has never had the chance to go to her dentist. No difficulty in chewing or swallowing reported. Pt verified anthropometrics. VIT C, and zinc supplements are taken daily. Pt is requesting for regular diet and to discontinue Cardiac diet as it is not appetizing. Per EMR, PO intake 3% average of 3 meals x 2 refusals. With pt's depression and negligible PO intake, pt may benefit from adhering to her preferences, RD plan to add ONS for optimal nutrition and pt agreed and verbalized preferred ONS flavor. Pt declined nutrition education. Ht: 5'7 Wt: 155#/70 kg BMI: 24.3 kg/m2 (Adequate for Geriatric age) %IBW: 115 IBW: 135#/61 kg Adj IBW: 127#/58 kg ESTIMATED NUTRITIONAL REQUIREMENTS CALORIES/DAY: 9845-5897 kcal/day (25-30 kcal/kg ABW for maintenance) PROTEIN/DAY: 58-87 gm/day (1-1.5 gm/kg ABW for skin integrity and preservation of lean body mass) FLUID/DAY: 1.5 L/day (25ml/kg ABW for Geriatric maintenance) D: Inadequate nutrient intake r/t behavioral factors AEB pt's report of poor appetite 2/2 depression and PO intake records meeting <75% of estimated needs and negligible PO intake records and refusal to eat meals 2/2 pain/ I: 1. Recommend Regular diet w/ Ensure Enlive (chocolate only) TID. ONS will provide additional 1050 kcal and 60 gm protein daily. Discontinue Cardiac until pt's appetite improves. 2. Consider Megace to stimulate appetite. 3. Encourage pt to increase PO intake. M: Monitor appetite and PO intake w/ goal of pt meeting at least 75% of estimated nutritional needs, labs trending WNL, normal GI function, skin integrity/wt maintenance. E: RD to F/U within 2-[address]
--- NOTE | 2019-05-09 12:48 | NUR ---
Dietitian Recommendation 1. Recommend Regular diet w/ Ensure Enlive (chocolate only) TID. ONS will provide additional 1050 kcal and 60 gm protein daily. Discontinue Cardiac until pt's appetite improves. 2. Consider Megace to stimulate appetite. 3. Encourage pt to increase PO intake. TON, RD
--- NOTE | 2019-05-09 12:50 | NUR ---
ROUNDS PT IN BED, NO S/S OF DISTRESS OR SOB NOTED, PT HAS NO C/O PAIN AT THIS TIME, PT IN STABLE CONDITION, PT WATCHING TV, WILL CONTINUE TO MONITOR PT FOR ANY CHANGES.
--- NOTE | 2019-05-09 14:09 | NUR ---
ROUNDS PT IN BED, NO S/S OF DISTRESS OR SOB NOTED, PT HAS NO C/O PAIN AT THIS TIME, PT IN STABLE CONDITION, PT RESTING COMFORTABLY, WILL CONTINUE TO MONITOR PT FOR ANY CHANGES.
--- NOTE | 2019-05-09 15:19 | NUR ---
BRACE [facility] BRACE HAS BEEN DELIVERED AND FITTED.
[2019-05-09 15:24] VITALS: BP_SYST 102
--- NOTE | 2019-05-09 16:01 | NUR ---
DCP to [facility] Spoke with Carolyne from [facility], pt is going back to the facility, room 25B. [facility] p:[phone] waste picker time is 7PM. Eli ESTRADA notified. Packet on chart.
--- NOTE | 2019-05-09 16:22 | NUR ---
PAGED PAGED COMFORT MAS AT [phone] SPOKE WITH RUSSEL.
--- NOTE | 2019-05-09 16:40 | NUR ---
P.T. NOTES P.T. RAFA COMPLETED; REFER TO RAFA FOR DETAILS. Addendum: 05/09/19 at 1640 by Cori Diallo PT Amended: Links added.
[2019-05-09] MEDS ORDERED: LACTOBACILLUS RHAMNOSUS GG 1 CAP CAPSULE PO SCH (17:00)
--- NOTE | 2019-05-09 17:10 | NUR ---
NIETO CATHETER D/C REMOVED NIETO CATHETER, CATHETER INTACT, BLADDER NON DISTENDED, NO ACTIVE BLEEDING NOTED, EDUCATED PT TO LET NURSE WHEN SHE FIRST VOIDS. PT VERBALIZED UNDERSTANDING.
--- NOTE | 2019-05-09 17:11 | NUR ---
MEDICATION REASSESSMENT PT NO LONGER FEELS ANXIOUS, PT IN STABLE CONDITION, PT STATED THAT THE MEDICATION WORKED, WILL CONTINUE TO MONITOR PT FOR ANY CHANGES.
[2019-05-09 17:34] VITALS: BP_SYST 106
--- NOTE | 2019-05-09 17:42 | NUR ---
REPORT REPORT GIVEN TO HARI AT [facility], , MADE HER AWARE THAT F/C WAS JUST D/C AND THAT PT WILL BE GOING WITH AN IV CATHETER ON LEFT AC 22 GAUGE, SALINE LOCK, PATENT, FLUSHES AND HAS NO SIGNS OF INFECTION OR INFILTRATION.
--- NOTE | 2019-05-09 18:43 | NUR ---
CLOSING NOTE PT IN BED, NO S/S OF DISTRESS OR SOB NOTED, PT HAS NO C/O PAIN AT THIS TIME, PT IN STABLE CONDITION, PT AAOX4, VERBAL, IV CATHETER PATENT, NO SIGNS OF INFECTION OR INFILTRATION NOTED. BED AT LOWEST POSITION, CALL LIGHT WITHIN REACH, WILL ENDORSE CARE OF PT TO INCOMING NURSE, FALL AND SAFETY PRECAUTIONS IN PLACE. PT REFUSED SCD ON LEFT LEG, EDUCATED PT ON USE TO PREVENT DVT, PT VERBALIZED UNDERSTANDING BUT CONTINUES TO REFUSE.RIGHT STUMP ELEVATED WITH PILLOWS, NOTED EDEMA. AWAITING FOR DURABILITY TECHNICIAN FOR D/C TO SNF. REPORT ALREADY GIVEN TO SNF.
--- NOTE | 2019-05-09 19:20 | NUR ---
DISCHARGE NOTES: ambulance medicinal plant picker here, day shift nurse Eli already gave report to [facility]. pt. discharge in stable condition via rain @ 2719.
== END 2019-05-09 19:20 | disposition short-term general hospital (02) | DRG 562 ==
LOC: SED 13:15 → STU 16:27
PROVIDERS: ADMIT Internal Medicine; ATTEND Internal Medicine
DX: S82.831A Other fracture of upper and lower end of right fibula, initial encounter for closed fracture (principal); S72.21XA Displaced subtrochanteric fracture of right femur, initial encounter for closed fracture; E03.9 Hypothyroidism, unspecified; F20.9 Schizophrenia, unspecified; I10 Essential (primary) hypertension; M79.7 Fibromyalgia; E78.5 Hyperlipidemia, unspecified; F32.9 Major depressive disorder, single episode, unspecified; F17.200 Nicotine dependence, unspecified, uncomplicated; W06.XXXA Fall from bed, initial encounter; Z89.511 Acquired absence of right leg below knee; Z90.710 Acquired absence of both cervix and uterus; Z95.1 Presence of aortocoronary bypass graft; Z98.84 Bariatric surgery status; I25.2 Old myocardial infarction; Z79.899 Other long term (current) drug therapy; Z79.82 Long term (current) use of aspirin; Z88.8 Allergy status to other drugs, medicaments and biological substances; Y93.89 Activity, other specified; Y92.89 Other specified places as the place of occurrence of the external cause; Y99.8 Other external cause status
CPT/HCPCS: 36415; 73552; 80048; 80053; 81003; 83605; 83880; 84443-TC; 84484; 85025; 85610-TC; 85730-TC; 87040-TC; 87081; 93005; 96374; 97112-GP; 97163; 99285; G0378; J0690; J2060; J2270; J3010; J7060

== ENCOUNTER 2019-09-15 21:16 | Inpatient (IN) | payer OTHER, MEDICAID ==
[~2019-09-15] VITALS: Ht 170.2 cm; Wt 71.2 kg
[~2019-09-15 21:16] MED LIST changes: +ACET-2634 PO; -ACET-2766 PO; +ALBMDI INH; -ALBU8.5H8; +ASA81 PO; -ASCO500C18; +ASCO500T20 PO; +DULO20CA PO; -DULO40CA PO; -HYDR50TA61; -IBUP-1505; -LACT1CAP61 PO; +LACT1POW8 PO; -MAGN400C PO; +MAGN400T10 PO; -MORP-92 PO; +MORP20CA19 PO; -MULT1CAP34 PO; +MULTIVITAMIN PO; +NICO-680 TD; -ONDA4TAB11 PO; -PREG200C PO; +PREG75CA PO; -QUET100T33 PO; +SER25 PO; +VIS50 PO; -ZIN220 PO; -[UNRECOGNIZED DRUG - CODE]
[2019-09-15 21:18] VITALS: BP_SYST 104
--- NOTE | 2019-09-15 21:18 | NUR ---
Patient to ER bed 4 to gown for evaluation. Side rails up. Report given to SEAN Mcdonnell and SEAN Buchanan
--- NOTE | 2019-09-15 22:23 | NUR ---
Patient BIB BLS from [facility]. Patient is A&O x4. Patient complains of body aches all over especially on the legs, pain all over rated 10 out 10. Patient also complain of dry mouth. hx. of neuropathy, fibromyalgia. Patient is laying in bed. Will continue to monitor
--- NOTE | 2019-09-15 23:16 | NUR ---
ER Dr. TIRADO at bedside examining patient.
[2019-09-15] MEDS ORDERED: ONDANSETRON HCL 4 MG/2 ML VIAL IVP ONE (23:45)
[2019-09-15] MEDS ORDERED: MORPHINE 2 MG/ML INJ. SYRINGE IV ONE (23:45)
[2019-09-16 00:43] LABS: BASOPHILS # (AUTO) 0.2 K/uL (0.0-0.2); BASOPHILS % (AUTO) 2.4 % (0.0-2.0); EOSINOPHILS # (AUTO) 0.2 K/uL (0.0-0.4); EOSINOPHILS % (AUTO) 3.1 % (0.0-4.0); HEMATOCRIT 47.1 % (36-48); HEMOGLOBIN 15.5 g/dL (12.0-16.0); LYMPHOCYTES # (AUTO) 3.7 K/uL (1.0-5.5); LYMPHOCYTES % (AUTO) 59.8 % (20.5-51.5); MEAN CORPUSCULAR HEMOGLOBIN 27 pg (27-31); MEAN CORPUSCULAR HGB CONC 33 % (32-36); MEAN CORPUSCULAR VOLUME 83 fL (79.0-98.0); MONOCYTES # (AUTO) 0.3 K/uL (0.0-1.0); MONOCYTES % (AUTO) 4.2 % (1.7-9.3); NEUTROPHILS # (AUTO) 1.9 K/uL (1.8-7.7); NEUTROPHILS % (AUTO) 30.5 % (40.0-70.0); PLATELET COUNT (AUTO) 201 K/uL (130-430); RED BLOOD CELL COUNT(AUTO) 5.67 MIL/uL (4.2-6.2); RED CELL DISTRIBUTION WIDTH 21.7 % (9.0-15.0); WHITE BLOOD COUNT (AUTO) 6.3 K/uL (4.8-10.8)
[2019-09-16 00:57] LABS: ANION GAP 9 (5-15); CALCIUM 8.7 mg/dL (8.4-11.0); CHLORIDE 107 mmol/L (98-107); CREATININE 0.44 mg/dL (0.55-1.30); GLUCOSE 89 mg/dL (70-99); POTASSIUM 3.3 mmol/L (3.5-5.1); SODIUM SERUM 144 mmol/L (136-145); UREA NITROGEN, BLOOD 13 mg/dL (8-21)
[2019-09-16 01:00] LABS: GFR AFRICAN AMERICAN 183 mL/min (>90)
[2019-09-16 01:06] LABS: ALANINE AMINOTRANSFERASE 20 U/L (12-78); ASPARTATE AMINOTRANSFERASE 22 U/L (10-37); TOTAL BILIRUBIN 0.2 mg/dL (0.0-1.0)
--- NOTE | 2019-09-16 01:13 | NUR ---
Pt resting comfortably in ED bed. No distress. Pt states she feels relief from pain medication
--- NOTE | 2019-09-16 02:30 | NUR ---
Pt resting in ED bed comfortably. No distress
[2019-09-16] MEDS ORDERED: POTASSIUM CHLORIDE 20 MEQ TAB.PRT.SR PO ONE (03:00)
--- NOTE | 2019-09-16 03:22 | NUR ---
Pt resting in ED bed, no distress
[2019-09-16 03:40] LABS: BILIRUBIN,URINE NEGATIVE (NEGATIVE); CLARITY/URINE CLEAR (CLEAR); COLOR,URINE YELLOW (YELLOW); GLUCOSE,URINE NEGATIVE (NEGATIVE); KETONES,URINE NEGATIVE (NEGATIVE); PROTEIN URINE NEGATIVE (NEGATIVE)
[2019-09-16 03:41] LABS: BLOOD, URINE TRACE (NEGATIVE); LEUKOCYTE ESTERASE ,URINE 2+ (NEGATIVE); NITRITE, URINE POSITIVE (NEGATIVE); UROBILINOGEN,URINE 0.2 (0.2-1.0)
[2019-09-16 03:46] LABS: BACTERIA,URINE MANY /HPF (None Seen)
[2019-09-16] MEDS ORDERED: cefTRIAXone 1 GM in D5W 50 ML IV ONE (04:15)
--- NOTE | 2019-09-16 04:36 | NUR ---
Pt tolerating IV antibiotics. No s/s of infiltration or adverse reactions
[2019-09-16] MEDS ORDERED: cefTRIAXone 1 GM IVPB PREMIX 50 ML IV ONE (04:48)
[2019-09-16] MEDS ORDERED: NACL 0.9% 1,000 ML IV ONE (05:00)
[2019-09-16] MEDS ORDERED: KETOROLAC TROMETHAMINE 15 MG VIAL IVP ONE (05:15)
--- NOTE | 2019-09-16 05:45 | NUR ---
Pt resting in bed. tolerating IV fluids well
--- NOTE | 2019-09-16 06:12 | NUR ---
Pt resting. No acute distress noted
--- NOTE | 2019-09-16 07:30 | NUR ---
Report Given to SEAN Michel. All care endorsed
--- NOTE | 2019-09-16 09:00 | NUR ---
PT IN [facility] AT THIS TIME, BEDSIDE COMMODE GIVEN FOR SAFETY AND EASE.
--- NOTE | 2019-09-16 10:30 | NUR ---
PT AWAITING MED SURG BED AT THIS TIME.
--- NOTE | 2019-09-16 12:25 | NUR ---
Patient will be admitted to care of TIMMONS. Admitted to MED SURG unit. Will go to room 104A. Belongings list completed. Complete and up to date summary report printed. SBAR report to be given at bedside with opportunity for questions.
[2019-09-16 13:00] VITALS: BP_SYST 154
--- NOTE | 2019-09-16 13:00 | NUR ---
Assumed care. Patient resting in bed alert and oriented. Complains of severe low back pain. Dr. Castro spoke with patient about plan of care. Reoriented patient to room safety. Call light within reach. Encouraged to call anytime for assistance. Will monitor.
[2019-09-16 13:01] VITALS: BP_SYST 154
[2019-09-16] MEDS ORDERED: cloNIDine HCL 0.1 MG TABLET PO PRN (13:15)
[2019-09-16] MEDS ORDERED: ACETAMINOPHEN 500 MG TABLET PO PRN (13:15)
[2019-09-16] MEDS ORDERED: ALBUTEROL SULFATE 0.083% 2.5 MG/3 ML VIAL.NEB INH PRN ×2 (13:15→13:27)
--- NOTE | 2019-09-16 13:20 | NUR ---
late entry due to patient care 1245 ADMIT NOTE Received pt from ER to the floor with a diagnosis of UTI. Admission process initiated. patient oriented to pain management, safety and call light-teach back done.
[2019-09-16] MEDS: PREGABALIN 25 MG CAPSULE (LYRICA) PO SCH ×2 (15:23→21:11)
[2019-09-16] MEDS: PREGABALIN 75 MG CAPSULE (LYRICA) PO SCH ×2 (15:24→21:11)
--- NOTE | 2019-09-16 15:30 | NUR ---
PAIN Patient is crying, reported 10/10 back pain. Asked for stronger medication. Dr. Matthew arora.
[2019-09-16 16:00] VITALS: BP_SYST 158
--- NOTE | 2019-09-16 16:37 | NUR ---
Spoke to Dr. Castro, agreed to give one time dose of morphine.
[2019-09-16] MEDS ORDERED: MORPHINE SULFATE 15 MG TABLET.ER PO ONE (16:45)
[2019-09-16] MEDS: METHOCARBAMOL 500 MG TABLET PO SCH ×2 (17:06→20:25)
--- NOTE | 2019-09-16 18:12 | NUR ---
CLOSING NOTES Resting in bed. Pain is controlled at this time. Eating dinner. Denies any shortness of breath. All needs met throughout shift. Will endorse.
--- NOTE | 2019-09-16 19:51 | NUR ---
Opening Note Received report from jeremieft RN, patient resting in bed, A/Ox4, no signs of acute distress noted, even and unlabored breathing on room air, IV to right AC intact and saline locked, no complaints of pain at this time. Safety and fall precautions in place, bed alarm on, bed locked and in lowest position, two side rails up, bed close to nursing station, call light with patient, will continue to monitor.
[2019-09-16 20:00] VITALS: BP_SYST 145
[2019-09-16] MEDS: LACTOBACILLUS RHAMNOSUS GG 1 CAP CAPSULE PO SCH (20:24)
[2019-09-16] MEDS: ASCORBIC ACID 500 MG TABLET PO SCH (20:24)
[2019-09-16] MEDS: MORPHINE SULFATE 15 MG TABLET.ER PO SCH (20:26)
[2019-09-16] MEDS: QUEtiapine FUMARATE 100 MG TABLET PO SCH (21:10)
--- NOTE | 2019-09-16 21:14 | NUR ---
TRANSFER OF CARE Transferring care to [facility] RN, patient resting in bed, A/Ox4, no signs of acute distress noted, tolerating room air, IV to right AC intact and saline locked, no complaints of pain at this time. Safety and fall precautions in place, bed alarm on, bed locked and in lowest position, two side rails up, bed close to nursing station, call light with patient.
--- NOTE | 2019-09-16 21:15 | NUR ---
Transfer of care from [facility].Pt awake ,alert, pleasant. voice no c/o pain or discomfort at present.
[2019-09-17 00:02] VITALS: BP_SYST 117
--- NOTE | 2019-09-17 00:30 | NUR ---
Patient asleep, easily awaken NAD noted. calm/ quiet.
--- NOTE | 2019-09-17 03:00 | NUR ---
No change in status, asleep.
[2019-09-17] MEDS: PREGABALIN 75 MG CAPSULE (LYRICA) PO SCH ×3 (05:13→21:35)
[2019-09-17] MEDS: PREGABALIN 25 MG CAPSULE (LYRICA) PO SCH ×3 (05:13→21:35)
[2019-09-17] MEDS: LEVOTHYROXINE SODIUM 0.075 MG TABLET PO SCH (06:46)
--- NOTE | 2019-09-17 07:10 | NUR ---
Med pass completed. Pt tolerated po meds, voices no c/o pain or discomfort. will give report to 7am RN.
--- NOTE | 2019-09-17 07:15 | NUR ---
OPENING NOTES PT AWAKE, ALERT, AND ORIENTED. NONLABORED BREATHING NOTED ON ROOM AIR, 02 AT 95%. NO ACUTE DISTRESS NOTED. IV LINE INTACT AND PATENT, NO SIGNS OF INFILTRATION NOTED. PT DENIES PAIN AT THIS TIME. PT CLEAN AND DRY. HOB ELEVATED. ALL NEEDS MET. CALL LIGHT IN REACH. FALL AND ASPIRATION PRECAUTIONS IN PLACE. BED LOCKED AND IN LOWEST POSITION. CONTINUE TO MONITOR.
[2019-09-17 08:00] VITALS: BP_SYST 142
[2019-09-17] MEDS ORDERED: cefTRIAXone 1 GM VIAL IM SCH ×2 (09:00)
[2019-09-17] MEDS: FOLIC ACID 1 MG TABLET PO SCH (09:15)
[2019-09-17] MEDS: ASCORBIC ACID 500 MG TABLET PO SCH ×2 (09:15→21:36)
[2019-09-17] MEDS: MAGNESIUM OXIDE 400 MG TABLET PO SCH (09:15)
[2019-09-17] MEDS: LACTOBACILLUS RHAMNOSUS GG 1 CAP CAPSULE PO SCH ×2 (09:15→21:36)
[2019-09-17] MEDS: ASPIRIN 81 MG TAB.CHEW PO SCH (09:15)
[2019-09-17] MEDS: MORPHINE SULFATE 15 MG TABLET.ER PO SCH ×2 (09:16→21:34)
--- NOTE | 2019-09-17 09:16 | NUR ---
ROUTINE MEDS ROUTINE MEDS ADMINISTERED ORDERED PER MD, EDUCATION GIVEN, TOLERATED WELL. NO ACUTE DISTRESS NOTED. ALL NEEDS MET. CALL LIGHT IN REACH. CONTINUE TO MONITOR.
[2019-09-17] MEDS: amLODIPine BESYLATE 5 MG TABLET PO SCH (09:17)
[2019-09-17] MEDS: NICOTINE 14 MG/24 HR PATCH.TD24 TD SCH (09:17)
[2019-09-17] MEDS: MULTIVITS,CA,MINERALS/IRON/FA 1 TABLET PO SCH (09:18)
[2019-09-17] MEDS: DULoxetine HCL 20 MG CAPSULE.DR PO SCH (09:21)
[2019-09-17] MEDS: METHOCARBAMOL 500 MG TABLET PO SCH ×4 (09:46→21:34)
--- NOTE | 2019-09-17 10:09 | NUR ---
Nutrition Update Babak Scale 13 noted. Pt admitted for UTI. Diet: cardiac BMI: 24.6 kg/m2 RD to follow per nutrition care standards.
--- NOTE | 2019-09-17 11:00 | NUR ---
PERINEAL CARE ASSISTED PT WITH PERINEAL CARE AND CHANGED LINEN. PT CLEAN AND DRY. TOLERATED WELL. NO ACUTE DISTRESS NOTED. ALL NEEDS MET. CALL LIGHT IN REACH. CONTINUE TO MONITOR.
[2019-09-17 12:00] VITALS: BP_SYST 152
[2019-09-17] MEDS ORDERED: MUPIROCIN 1 GM OIN.PF.APP NS ONE (12:30)
[2019-09-17] MEDS: CEFTRIAXONE SOD 1 GM/ D5W 50 ML IV SCH ×2 (13:25)
--- NOTE | 2019-09-17 13:25 | NUR ---
ROUTINE MEDS ROUTINE MEDS ADMINISTERED ORDERED PER MD, EDUCATION GIVEN, TOLERATED WELL. NO ACUTE DISTRESS NOTED. ALL NEEDS MET. CALL LIGHT IN REACH. CONTINUE TO MONITOR.
[2019-09-17] MEDS ORDERED: MUPIROCIN 2% TOPICAL OINTMENT 22 GM NS ONE (13:45)
--- NOTE | 2019-09-17 15:00 | NUR ---
ASSISTED PT WITH PERINEAL CARE CLEANED PT'S PERINEAL AREA WITH SOAP AND WATER, PAT DRY. CHANGED LINEN, TOLERATED WELL. NO ACUTE DISTRESS NOTED. ALL NEEDS MET. CALL LIGHT IN REACH. CONTINUE TO MONITOR.
[2019-09-17 16:00] VITALS: BP_SYST 140
--- NOTE | 2019-09-17 17:47 | NUR ---
ROUTINE MEDS ROUTINE MEDS ADMINISTERED ORDERED PER MD, EDUCATION GIVEN, TOLERATED WELL. NO ACUTE DISTRESS NOTED. ALL NEEDS MET. CALL LIGHT IN REACH. CONTINUE TO MONITOR.
--- NOTE | 2019-09-17 18:45 | NUR ---
CLOSING NOTES PT AWAKE, ALERT, AND ORIENTED, WATCHING TV IN BED. NONLABORED BREATHING NOTED ON ROOM AIR, NO USE OF ACCESSORY MUSCLES. NO ACUTE DISTRESS NOTED. IV LINE INTACT AND PATENT, NO SIGNS OF INFILTRATION NOTED. PT DENIES PAIN AT THIS TIME. PT CLEAN AND DRY. BED LOCKED AND IN LOWEST POSITION. ALL NEEDS MET. CALL LIGHT IN REACH. FALL AND ASPIRATION PRECAUTIONS IN PLACE. WILL ENDORSE TO NOC NURSE.
[2019-09-17] MEDS: HYDROcodone/ACETAMIN 5-325 MG TAB (NORCO/ VICODIN) PO PRN (18:57)
--- NOTE | 2019-09-17 19:45 | NUR ---
Pt was received in bed fully awake, alert and oriented x4. No c/o pain or discomfort and no acute distress noted. Saline lock in LAC is without any signs of infiltration. Fall and safety precautions are in place.
[2019-09-17 20:00] VITALS: BP_SYST 152
[2019-09-17] MEDS: MUPIROCIN 2% TOPICAL OINTMENT 22 GM NS SCH (21:34)
--- NOTE | 2019-09-17 21:34 | NUR ---
Pt is resting quietly in bed. Call light is with pt and bed alarm is on.
[2019-09-17] MEDS: QUEtiapine FUMARATE 100 MG TABLET PO SCH (22:52)
--- NOTE | 2019-09-17 23:00 | NUR ---
No acute distress noted at this time. Call light is with pt and bed alarm is on.
--- NOTE | 2019-09-18 01:00 | NUR ---
Pt is sleeping comfortably in bed. Fall and safety precautions are in place.
--- NOTE | 2019-09-18 03:00 | NUR ---
Pt is sleeping comfortably in bed. Call light is with pt and bed alarm is on.
[2019-09-18] MEDS: HYDROcodone/ACETAMIN 5-325 MG TAB (NORCO/ VICODIN) PO PRN ×2 (04:50→13:48)
--- NOTE | 2019-09-18 04:50 | NUR ---
[place] 5/325mg 1 tablet was given po for c/o 6/10 headache and back pain with relief. Fall and safety precautions are in place.
[2019-09-18 05:58] VITALS: BP_SYST 152
[2019-09-18] MEDS: LEVOTHYROXINE SODIUM 0.075 MG TABLET PO SCH (06:02)
[2019-09-18] MEDS: PREGABALIN 25 MG CAPSULE (LYRICA) PO SCH ×3 (06:03→21:12)
[2019-09-18] MEDS: PREGABALIN 75 MG CAPSULE (LYRICA) PO SCH ×3 (06:03→21:11)
--- NOTE | 2019-09-18 06:25 | NUR ---
Pt is resting comfortably in bed. Saline lock is intact in LAC and no signs of infiltration noted at the site. Fall and safety precautions are in place.
--- NOTE | 2019-09-18 07:15 | NUR ---
OPENING NOTES PT RESTING IN BED. CHEST RISE AND FALL NOTED, AWAKENS TO VOICE. PT DENIES PAIN AT THIS TIME. NONLABORED BREATHING NOTED ON ROOM AIR, O2 AT 95%. NO ACUTE DISTRESS NOTED. IV LINE INTACT AND PATENT, NO SIGNS OF INFILTRATION NOTED. PT CLEAN AND DRY. HOB ELEVATED. ALL NEEDS MET. CALL LIGHT IN REACH. FALL, ISOLATION, AND ASPIRATION PRECAUTIONS IN PLACE. BED LOCKED AND IN LOWEST POSITION. CONTINUE TO MONITOR.
[2019-09-18 08:08] VITALS: BP_SYST 143
[2019-09-18] MEDS: MUPIROCIN 2% TOPICAL OINTMENT 22 GM NS SCH ×2 (08:43→23:05)
[2019-09-18] MEDS: MAGNESIUM OXIDE 400 MG TABLET PO SCH (08:43)
[2019-09-18] MEDS: LACTOBACILLUS RHAMNOSUS GG 1 CAP CAPSULE PO SCH ×2 (08:43→21:10)
[2019-09-18] MEDS: ASPIRIN 81 MG TAB.CHEW PO SCH (08:43)
[2019-09-18] MEDS: FOLIC ACID 1 MG TABLET PO SCH (08:43)
[2019-09-18] MEDS: DULoxetine HCL 20 MG CAPSULE.DR PO SCH (08:43)
[2019-09-18] MEDS: ASCORBIC ACID 500 MG TABLET PO SCH ×2 (08:44→21:11)
[2019-09-18] MEDS: MULTIVITS,CA,MINERALS/IRON/FA 1 TABLET PO SCH (08:44)
[2019-09-18] MEDS: amLODIPine BESYLATE 5 MG TABLET PO SCH (08:44)
[2019-09-18] MEDS: METHOCARBAMOL 500 MG TABLET PO SCH ×4 (08:44→21:11)
[2019-09-18] MEDS: MORPHINE SULFATE 15 MG TABLET.ER PO SCH ×2 (08:44→21:13)
[2019-09-18] MEDS: NICOTINE 14 MG/24 HR PATCH.TD24 TD SCH (08:45)
--- NOTE | 2019-09-18 08:45 | NUR ---
ROUTINE MEDS ROUTINE MEDS ADMINISTERED ORDERED PER MD, EDUCATION GIVEN, TOLERATED WELL. NO ACUTE DISTRESS NOTED. ALL NEEDS MET. CALL LIGHT IN REACH. CONTINUE TO MONITOR.
[2019-09-18] MEDS ORDERED: cefTRIAXone 1 GM VIAL IV SCH (09:00)
--- NOTE | 2019-09-18 11:00 | NUR ---
ROUNDS PT RESTING IN BED. CHEST RISE AND FALL NOTED. EASILY AWAKEN. PT DENIES PAIN AT THIS TIME. NO ACUTE DISTRESS NOTED. ALL NEEDS MET. CALL LIGHT IN REACH. CONTINUE TO MONITOR.
[2019-09-18 12:33] VITALS: BP_SYST 133
--- NOTE | 2019-09-18 13:00 | NUR ---
ROUNDS PT AWAKE AND ALERT, AND ORIENTED. PT WATCHING TV IN BED. NO ACUTE DISTRESS NOTED. NONLABORED BREATHING NOTED ON ROOM AIR. ALL NEEDS MET. CALL LIGHT IN REACH. CONTINUE TO MONITOR.
--- NOTE | 2019-09-18 13:50 | NUR ---
ROUTINE MEDS ROUTINE MEDS ADMINISTERED ORDERED PER MD, EDUCATION GIVEN, TOLERATED WELL. NO ACUTE DISTRESS NOTED. ALL NEEDS MET. CALL LIGHT IN REACH. CONTINUE TO MONITOR.
[2019-09-18] MEDS: CEFTRIAXONE SOD 1 GM/ D5W 50 ML IV SCH ×2 (13:57)
--- NOTE | 2019-09-18 15:40 | NUR ---
CRITICAL LAB POSITIVE FOR ESBL OF URINE SPOKE TO DR. TIMMONS, RECEIVED ORDERS FOR ABX, ORDERS VERIFIED AND CARRIED OUT.
[2019-09-18 16:18] VITALS: BP_SYST 135
--- NOTE | 2019-09-18 16:42 | NUR ---
ROUTINE MEDS ROUTINE MEDS ADMINISTERED ORDERED PER MD, EDUCATION GIVEN, TOLERATED WELL. NO ACUTE DISTRESS NOTED. ALL NEEDS MET. CALL LIGHT IN REACH. CONTINUE TO MONITOR.
--- NOTE | 2019-09-18 18:56 | NUR ---
CLOSING NOTES PT AWAKE, ALERT, AND ORIENTED WATCHING TELEVISION IN BED. NO ACUTE DISTRESS NOTED. PT DENIES PAIN AT THIS TIME. NONLABORED BREATHING NOTED ON ROOM AIR. IV LINE INTACT AND PATENT, NO SIGNS OF INFILTRATION NOTED. PT CLEAN AND DRY. HOB ELEVATED. PER INSPECTOR INTEGRATED CIRCUITS, PT HAD EMESIS COLORED BROWN ABOUT 50CCS, WILL ENDORSE TO NOC NURSE. ALL NEEDS MET. CALL LIGHT IN REACH. FALL, ISOLATION, AND ASPIRATION PRECAUTIONS IN PLACE. BED LOCKED AND IN LOWEST POSITION. WILL ENDORSE TO NOC NURSE.
--- NOTE | 2019-09-18 19:50 | NUR ---
OPENING NOTES Received report from SEAN Baez. Patient is resting in bed, awake, alert, oriented x 4, breathing evenly and nonlabored on room air. Patient has an IV on the left AC 20g SL, patent and benign, no s/s of infection or infiltration at this time. Patient has a right BKA. Educated patient on plan of care, fall/safety/isolation precautions, call light system, patient stated understanding with return demonstration. Bed is locked, armed, and at lowest position, will continue to monitor.
[2019-09-18 20:30] VITALS: BP_SYST 144
[2019-09-18] MEDS: AZITHROMYCIN 250 MG TABLET PO SCH (21:11)
--- NOTE | 2019-09-18 21:15 | NUR ---
MEDICATIONS/ROUNDS Patient is resting in bed, awake, breathing evenly and nonlabored on room air. Educated patient on due medications, patient stated understanding. Patient asked for Seroquel and Bactroban to be given after 2300. Administered medications, patient tolerated them well. No other needs at this time. Fall/safety/isolation precautions, will continue to monitor.
[2019-09-18] MEDS: QUEtiapine FUMARATE 100 MG TABLET PO SCH (23:06)
--- NOTE | 2019-09-18 23:06 | NUR ---
MEDICATIONS/ROUNDS Patient is resting in bed, awake, breathing evenly and nonlabored on room air. Educated patient on medications, patient stated understanding. Administered medications, patient tolerated them well. No other needs at this time. Fall/safety/isolation precautions, will continue to monitor.
--- NOTE | 2019-09-19 01:05 | NUR ---
ROUNDS Patient is resting in bed, eyes closed, breathing evenly and nonlabored on room air. No s/s of distress at this time, no other needs at this time. Fall/safety/isolation precautions, will continue to monitor.
--- NOTE | 2019-09-19 03:05 | NUR ---
ROUNDS Patient is resting in bed, eyes closed, breathing evenly and nonlabored on room air. No s/s of distress at this time, no other needs at this time. Fall/safety/isolation precautions, will continue to monitor the patient.
[2019-09-19 05:09] VITALS: BP_SYST 135
[2019-09-19] MEDS: PREGABALIN 75 MG CAPSULE (LYRICA) PO SCH ×2 (06:46→13:41)
[2019-09-19] MEDS: PREGABALIN 25 MG CAPSULE (LYRICA) PO SCH ×2 (06:46→13:45)
[2019-09-19] MEDS: LEVOTHYROXINE SODIUM 0.075 MG TABLET PO SCH (06:46)
--- NOTE | 2019-09-19 07:00 | NUR ---
CLOSING NOTES Patient is resting in bed, awake, breathing evenly and nonlabored on room air. Educated patient on medications, patient stated understanding. Administered medications, patient tolerated them well. No other needs at this time. Fall/safety/isolation precautions, will continue endorse care to morning shift RN.
--- NOTE | 2019-09-19 07:36 | NUR ---
rn opening note Patient appears to be resting with both eyes closed no signs of any distress, breathing is equal and non labored. patient has all safety precautions in place.
[2019-09-19] MEDS: METHOCARBAMOL 500 MG TABLET PO SCH ×4 (08:29→20:15)
[2019-09-19] MEDS: MAGNESIUM OXIDE 400 MG TABLET PO SCH (08:29)
[2019-09-19] MEDS: LACTOBACILLUS RHAMNOSUS GG 1 CAP CAPSULE PO SCH ×2 (08:29→20:15)
[2019-09-19] MEDS: ASCORBIC ACID 500 MG TABLET PO SCH ×2 (08:29→20:15)
[2019-09-19] MEDS: FOLIC ACID 1 MG TABLET PO SCH (08:29)
[2019-09-19] MEDS: MULTIVITS,CA,MINERALS/IRON/FA 1 TABLET PO SCH (08:30)
[2019-09-19] MEDS: AZITHROMYCIN 250 MG TABLET PO SCH (08:30)
[2019-09-19] MEDS: MORPHINE SULFATE 15 MG TABLET.ER PO SCH ×2 (08:30→20:14)
[2019-09-19] MEDS: NICOTINE 14 MG/24 HR PATCH.TD24 TD SCH (08:31)
[2019-09-19] MEDS: ASPIRIN 81 MG TAB.CHEW PO SCH (08:31)
[2019-09-19] MEDS: amLODIPine BESYLATE 5 MG TABLET PO SCH (08:31)
[2019-09-19] MEDS: DULoxetine HCL 20 MG CAPSULE.DR PO SCH (08:32)
[2019-09-19 08:37] VITALS: BP_SYST 133
[2019-09-19] MEDS: MUPIROCIN 2% TOPICAL OINTMENT 22 GM NS SCH ×2 (09:55→20:16)
--- NOTE | 2019-09-19 09:58 | NUR ---
medication patients scheduled medication given per order. patient is laying in bed,states she is going to eat in a little bit wants to rest a little more. patient educated sales operations specialist light, call light is with patient. patient has no other needs at this time. no signs of any distress.
[2019-09-19] MEDS ORDERED: CIPROFLOXACIN HCL 500 MG TABLET PO SCH ×2 (11:00→22:00)
[2019-09-19 12:00] VITALS: BP_SYST 145
[2019-09-19] MEDS ORDERED: CIPROFLOXACIN HCL 500 MG TABLET PO ONE (12:00)
[2019-09-19] MEDS: HYDROcodone/ACETAMIN 5-325 MG TAB (NORCO/ VICODIN) PO PRN (12:40)
--- NOTE | 2019-09-19 12:40 | NUR ---
pain medication patient complains of pain medicated per order. patient is awake and alert, tolerated medication well. educated to use call light for assistance. call light is with patient no other needs at this time. will continue to monitor.
--- NOTE | 2019-09-19 13:41 | NUR ---
medication patient scheduled medication give per order. patient is awake and alert sitting up in bed no signs of any distress, breathing is equal and non labored. patient has all safety precautions in place. educated to use call light for assistance. call light is with her. close to nurses station no other needs at this time.
--- NOTE | 2019-09-19 14:57 | NUR ---
Discharge Planning: JOSUEP faxed pt referral to [facility] (f [phone] p [phone]) JOSUEP to follow up Addendum: 09/19/19 at 1557 by Beatrice BA DCJay spoke to Exeland at [facility] (f [phone] p [phone]) CY made her awre that a Isolation room is needed, she will call back with room number. Addendum: 09/19/19 at 1710 by Beatrice Bishop DP CY received bed at [facility] (f [phone] p [phone]) Rm 9C Isolation, transport arranged with [facility] ([phone]) 8:00pm P/U. Patient packet taken to nurse station nurse aware.
[2019-09-19 16:32] VITALS: BP_SYST 129
--- NOTE | 2019-09-19 17:18 | NUR ---
medication patients scheduled medication given per order. patient is awake and alert no signs of any distress, breathing is equal and non labored. patient has no complaints at this time. tolerated medication well.
--- NOTE | 2019-09-19 17:19 | NUR ---
medication patients scheduled medication given per order. patient is awake and alert sitting up in bed. patient made aware that we have a bed available waiting for transport time. patient states she has informed her daughter she is going back. patient has call light with her. educated to use call light for assistance. no other needs at this time.
--- NOTE | 2019-09-19 19:25 | NUR ---
Opening Note Patient is awake, AOx4 resting in bed and watching t.v. No SOB of sign of distress. IV is SL to LFA. Bed is locked in lowest position, side rails up 3x and bed alarm on. She finished all her dinner and reports she had an appetite. Instructed on use of call light. Updated board.
--- NOTE | 2019-09-19 19:43 | NUR ---
rn closing note report was endorsed to night nurse. patient is awake and alert made aware, transfer to happen at 2000. patient states she will call her daughter once she arrives to facility to let her know what room she is in. patient has no complaints at this time. no signs of any distress, breathing is equal and non labored.
[2019-09-19 19:49] VITALS: BP_SYST 124
--- NOTE | 2019-09-19 20:01 | NUR ---
REPORT TO FACILITY Gave report to SEAN Barrios at [facility].
--- NOTE | 2019-09-19 20:14 | NUR ---
medications Patient requested [place] for pain, I informed her that she has MS contin scheduled and she said she will take MS contin 15 instead of [place]pe[place]. Administered MS contin 15 mg, culturelle, vit C and Bactroban as ordered.
--- NOTE | 2019-09-19 20:30 | NUR ---
Report to [facility] Report given to YINA Kathleen from [facility] ambulance. Completed discharge and printing papers
--- NOTE | 2019-09-19 20:38 | NUR ---
Discharge Patient's record; medication reconciliation form and D/C instructions, Exit Care provided in packet and given to ambulance staff. discussed with patient the results and treatment provided. Discharged via [place] to [facility]. Patient in stable condition, ID band removed. IV catheter removed, intact and dressing applied, no active bleeding. Patient educated on pain management. All belongings sent with patient.
--- NOTE | 2019-09-22 14:25 | NUR ---
Discharge Planning: DCP faxed pt referral to [facility] (f [phone] p [phone]) DCP to follow up. Addendum: 09/22/19 at 1551 by Beatrice Bishop DP DCP spoke to Elyse REY at [facility] (f [phone] p [phone]) patient to go to [facility], transportation arrage with [facility] ([phone]) 6:30pm P/U BLS?Bed bound patient. Nurse made aware and patient packet taket to nurse station.
== END 2019-09-19 20:40 | DRG 690 ==
LOC: SED 21:16 → SMU 09-16 07:17
PROVIDERS: ADMIT Internal Medicine Infectious Disease; ATTEND Internal Medicine Infectious Disease
DX: N39.0 Urinary tract infection, site not specified (principal); E03.9 Hypothyroidism, unspecified; E78.5 Hyperlipidemia, unspecified; M81.0 Age-related osteoporosis without current pathological fracture; M79.7 Fibromyalgia; B96.20 Unspecified Escherichia coli [E. coli] as the cause of diseases classified elsewhere; I25.10 Atherosclerotic heart disease of native coronary artery without angina pectoris; F03.90 Unspecified dementia, unspecified severity, without behavioral disturbance, psychotic disturbance, mood disturbance, and anxiety; I10 Essential (primary) hypertension; F20.9 Schizophrenia, unspecified; Z95.5 Presence of coronary angioplasty implant and graft; Z89.511 Acquired absence of right leg below knee; I25.2 Old myocardial infarction; Z88.5 Allergy status to narcotic agent; Z88.8 Allergy status to other drugs, medicaments and biological substances; Z79.899 Other long term (current) drug therapy; Z79.82 Long term (current) use of aspirin
CPT/HCPCS: 36415; 71045; 72170-TC; 80053; 81000-TC; 83605; 83880; 84484; 85025; 87040-TC; 87081; 87086; 87186-TC; 93005; J0696; J1885; J2270; J2405; J7030; J7060; Q0144

== ENCOUNTER 2019-09-21 07:34 | Inpatient (IN) | payer OTHER, MEDICAID ==
[~2019-09-21] VITALS: Ht 165.1 cm; Wt 65.3 kg
[2019-09-21 07:42] VITALS: BP_SYST 165
[2019-09-21] MEDS ORDERED: NS 500 ML IV ONE (08:00)
[2019-09-21] MEDS ORDERED: MUPI1OIN4 TP (08:03)
[2019-09-21] MEDS ORDERED: CIPR-260 PO (08:03)
[2019-09-21] MEDS ORDERED: ONDA4TAB5 PO (08:03)
[2019-09-21 08:22] LABS: BASOPHILS # (AUTO) 0.1 K/uL (0.0-0.2); BASOPHILS % (AUTO) 0.8 % (0.0-2.0); EOSINOPHILS % (AUTO) 0.6 % (0.0-4.0); HEMATOCRIT 50.4 % (36-48); HEMOGLOBIN 17.2 g/dL (12.0-16.0); LYMPHOCYTES # (AUTO) 2.5 K/uL (1.0-5.5); LYMPHOCYTES % (AUTO) 35.9 % (20.5-51.5); MEAN CORPUSCULAR HEMOGLOBIN 28 pg (27-31); MEAN CORPUSCULAR HGB CONC 34 % (32-36); MEAN CORPUSCULAR VOLUME 83 fL (79.0-98.0); MONOCYTES # (AUTO) 0.4 K/uL (0.0-1.0); MONOCYTES % (AUTO) 5.5 % (1.7-9.3); NEUTROPHILS % (AUTO) 57.2 % (40.0-70.0); PLATELET COUNT (AUTO) 179 K/uL (130-430); RED BLOOD CELL COUNT(AUTO) 6.11 MIL/uL (4.2-6.2); RED CELL DISTRIBUTION WIDTH 20.6 % (9.0-15.0)
[2019-09-21 08:33] LABS: CALCIUM 9.7 mg/dL (8.4-11.0); CREATININE 0.61 mg/dL (0.55-1.30); POTASSIUM 3.4 mmol/L (3.5-5.1)
[2019-09-21 08:37] LABS: PROTHROMBIN TIME 10.2 SECS (9.5-12.5)
[2019-09-21 08:40] LABS: BILIRUBIN,URINE NEGATIVE (NEGATIVE); CLARITY/URINE CLEAR (CLEAR); COLOR,URINE YELLOW (YELLOW); GLUCOSE,URINE NEGATIVE (NEGATIVE); KETONES,URINE 1+ (NEGATIVE); LEUKOCYTE ESTERASE ,URINE NEGATIVE (NEGATIVE); NITRITE, URINE NEGATIVE (NEGATIVE); PH,URINE 6.5 (5.0-8.0); PROTEIN URINE 1+ (NEGATIVE); UROBILINOGEN,URINE 0.2 (0.2-1.0)
[2019-09-21 08:44] LABS: BLOOD, URINE TRACE (NEGATIVE)
[2019-09-21 08:46] LABS: ALBUMIN 3.8 g/dL (3.4-4.8); TOTAL BILIRUBIN 0.4 mg/dL (0.0-1.0)
[2019-09-21 08:56] LABS: BACTERIA,URINE FEW /HPF (None Seen); WBC,URINE 0-3 /HPF (0-3)
[2019-09-21] MEDS ORDERED: PANTOPRAZOLE SODIUM 40 MG/VIAL (PROTONIX) IVP ONE (09:00)
[2019-09-21] MEDS ORDERED: ONDANSETRON HCL 4 MG/2 ML VIAL IVP ONE (09:00)
[2019-09-21] MEDS ORDERED: fentaNYL CITRATE/PF 100 MCG/2 ML AMP IVP ONE (12:45)
[2019-09-21] MEDS ORDERED: cefTRIAXone 1 GM in D5W 50 ML IV ONE (14:00)
[2019-09-21] MEDS: MORPHINE 2 MG/ML INJ. SYRINGE IVP PRN ×2 (14:06→20:19)
[2019-09-21 14:39] VITALS: BP_SYST 148
[2019-09-21] MEDS: D5/0.45 NS 1,000 ML IV SCH (15:19)
[2019-09-21 16:00] VITALS: BP_SYST 155
[2019-09-21] MEDS ORDERED: DIATR MEGLU/DIATRIZ SOD 30 ML SOLUTION PO ONE (16:31)
[2019-09-21] MEDS: HYDROcodone/ACETAMIN 5-325 MG TAB (NORCO/ VICODIN) PO PRN (17:10)
[2019-09-21 20:00] VITALS: BP_SYST 151
[2019-09-21] MEDS ORDERED: IOHEXOL 100 ML IV ONE (20:33)
[2019-09-22] MEDS: HYDROcodone/ACETAMIN 5-325 MG TAB (NORCO/ VICODIN) PO PRN ×4 (00:16→16:17)
[2019-09-22 01:59] VITALS: BP_SYST 149
[2019-09-22] MEDS: MORPHINE 2 MG/ML INJ. SYRINGE IVP PRN (03:44)
[2019-09-22] MEDS: D5/0.45 NS 1,000 ML IV SCH ×2 (06:06→17:22)
[2019-09-22 08:00] VITALS: BP_SYST 153
[2019-09-22] MEDS ORDERED: cefTRIAXone 1 GM in D5W 50 ML IV SCH (09:00)
[2019-09-22] MEDS ORDERED: CEFTRIAXONE SOD 1 GM/ D5W 50 ML IV SCH ×2 (09:00)
[2019-09-22] MEDS: MORPHINE SULFATE 10 MG/ML VIAL IVP PRN ×2 (09:09→14:31)
[2019-09-22] MEDS ORDERED: MINERAL OIL 30 ML UDC PO ONE (11:15)
[2019-09-22] MEDS ORDERED: METHOCARBAMOL 500 MG TABLET PO ONE (12:15)
[2019-09-22] MEDS ORDERED: CIPROFLOXACIN HCL 500 MG TABLET PO ONE ×2 (12:15→12:45)
[2019-09-22] MEDS ORDERED: ACETAMINOPHEN 500 MG TABLET PO PRN (12:15)
[2019-09-22] MEDS ORDERED: ALBUTEROL MDI INHALATION 8 GM INH INH PRN (12:15)
[2019-09-22] MEDS ORDERED: cloNIDine HCL 0.1 MG TABLET PO PRN (12:15)
[2019-09-22] MEDS: LACTOBACILLUS RHAMNOSUS GG 1 CAP CAPSULE PO ONE ×2 (12:15→14:25)
[2019-09-22] MEDS: ASPIRIN 81 MG TAB.CHEW PO ONE ×2 (12:30→14:24)
[2019-09-22] MEDS ORDERED: ASCORBIC ACID 500 MG TABLET PO ONE (12:30)
[2019-09-22] MEDS ORDERED: PREGABALIN 25 MG CAPSULE (LYRICA) PO ONE (12:30)
[2019-09-22] MEDS: FOLIC ACID 1 MG TABLET PO ONE ×2 (12:30→14:25)
[2019-09-22] MEDS ORDERED: ALBUTEROL SULFATE 0.083% 2.5 MG/3 ML VIAL.NEB INH PRN (12:30)
[2019-09-22] MEDS: MAGNESIUM OXIDE 400 MG TABLET PO ONE ×2 (12:30→14:24)
[2019-09-22] MEDS ORDERED: amLODIPine BESYLATE 5 MG TABLET PO ONE (12:30)
[2019-09-22 12:33] VITALS: BP_SYST 147
[2019-09-22] MEDS ORDERED: ONDANSETRON 4 MG ODT TAB PO ONE (12:45)
[2019-09-22] MEDS: MORPHINE SULFATE 15 MG TABLET.ER PO ONE ×2 (12:45→14:25)
[2019-09-22] MEDS ORDERED: DULoxetine HCL 20 MG CAPSULE.DR PO ONE (13:00)
[2019-09-22] MEDS: MULTIVIT-MINERALS/FERROUS GLUC 15 ML UDC PO ONE ×2 (13:00→14:23)
[2019-09-22] MEDS ORDERED: MUPIROCIN 2% TOPICAL OINTMENT 22 GM NS ONE (13:00)
[2019-09-22 16:15] VITALS: BP_SYST 147
[2019-09-22] MEDS ORDERED: METHOCARBAMOL 500 MG TABLET PO SCH (17:00)
[2019-09-22 17:54] VITALS: BP_SYST 147
[2019-09-22] MEDS ORDERED: ONDANSETRON 4 MG ODT TAB PO SCH (18:00)
[2019-09-22] MEDS ORDERED: LACTOBACILLUS RHAMNOSUS GG 1 CAP CAPSULE PO SCH (21:00)
[2019-09-22] MEDS ORDERED: CIPROFLOXACIN HCL 500 MG TABLET PO SCH ×2 (21:00→22:00)
[2019-09-22] MEDS ORDERED: QUEtiapine FUMARATE 100 MG TABLET PO SCH (21:00)
[2019-09-22] MEDS ORDERED: ASCORBIC ACID 500 MG TABLET PO SCH (21:00)
[2019-09-22] MEDS ORDERED: MUPIROCIN 2% TOPICAL OINTMENT 22 GM NS SCH (21:00)
[2019-09-22] MEDS ORDERED: PREGABALIN 25 MG CAPSULE (LYRICA) PO SCH (22:00)
[2019-09-23] MEDS ORDERED: MORPHINE SULFATE 15 MG TABLET.ER PO SCH
[2019-09-23] MEDS ORDERED: MAGNESIUM OXIDE 400 MG TABLET PO SCH (09:00)
[2019-09-23] MEDS ORDERED: FOLIC ACID 1 MG TABLET PO SCH (09:00)
[2019-09-23] MEDS ORDERED: amLODIPine BESYLATE 5 MG TABLET PO SCH (09:00)
[2019-09-23] MEDS ORDERED: LEVOTHYROXINE SODIUM 0.1 MG VIAL IVP SCH (09:00)
[2019-09-23] MEDS ORDERED: DULoxetine HCL 20 MG CAPSULE.DR PO SCH (09:00)
[2019-09-23] MEDS ORDERED: ASPIRIN 81 MG TAB.CHEW PO SCH (09:00)
[2019-09-23] MEDS ORDERED: MULTIVIT-MINERALS/FERROUS GLUC 15 ML UDC PO SCH (09:00)
== END 2019-09-22 19:00 | DRG 445 ==
LOC: SED 07:34 → SMU 12:54
PROVIDERS: ADMIT Internal Medicine Infectious Disease; ATTEND Internal Medicine Infectious Disease
DX: K81.9 Cholecystitis, unspecified (principal); K56.7 Ileus, unspecified; N39.0 Urinary tract infection, site not specified; E03.9 Hypothyroidism, unspecified; E78.5 Hyperlipidemia, unspecified; F03.90 Unspecified dementia, unspecified severity, without behavioral disturbance, psychotic disturbance, mood disturbance, and anxiety; F17.210 Nicotine dependence, cigarettes, uncomplicated; F20.9 Schizophrenia, unspecified; F32.9 Major depressive disorder, single episode, unspecified; G89.4 Chronic pain syndrome; I10 Essential (primary) hypertension; I25.10 Atherosclerotic heart disease of native coronary artery without angina pectoris; M79.7 Fibromyalgia; M81.0 Age-related osteoporosis without current pathological fracture; Z86.14 Personal history of Methicillin resistant Staphylococcus aureus infection; Z79.899 Other long term (current) drug therapy; I25.2 Old myocardial infarction; Z89.511 Acquired absence of right leg below knee; Z90.710 Acquired absence of both cervix and uterus; Z98.84 Bariatric surgery status; Z88.5 Allergy status to narcotic agent; Z88.8 Allergy status to other drugs, medicaments and biological substances; Z79.82 Long term (current) use of aspirin
CPT/HCPCS: 36415; 71045; 76700-TC; 80053; 81000-TC; 83605; 83690-TC; 84484; 85025; 85610-TC; 85730-TC; 87040-TC; 87081; 87086; 93005; 96374; 96375; 99285; C9113; J0696; J2270; J2405; J3010; J7060; Q0162; Q9964; Q9967